=== PATIENT | female | born 1965 | race Caucasian/White ===

== ENCOUNTER 2022-03-22 10:45 | Outpatient (RCR) | payer BC, SELFPAY | END 2022-11-01 23:59 | disposition home or self-care (01) | PROVIDERS: PCP Family Medicine; Visit Provider Family Medicine | DX: M62.838 Other muscle spasm (principal); Z51.89 Encounter for other specified aftercare | CPT/HCPCS: 97110; 97140; 97162 ==

== ENCOUNTER 2022-03-26 17:37 | Emergency (ER) | payer BC, SELFPAY ==
[2022-03-26 17:47] VITALS: BP 173/101; PULSE 92; RESP 20; TEMP 36.3; O2SAT 98; BMI 24.4
--- NOTE | 2022-03-26 18:09 | CRLHL7_ITS ---
For Patients: As a result of the Century Cures Act, medical imaging exams and procedure reports are released immediately into your electronic medical record. You may view this report before your referring provider. If you have questions, please contact your health care provider. INDICATION: Chest pain. TECHNIQUE: Chest 1 view. COMPARISON: None. FINDINGS: Cardiovascular and mediastinum: Heart size and vasculature are normal in caliber and appearance. Lungs and pleural spaces: Lungs are clear. No sign of infiltrate or mass. No sign of pleural effusion. No pneumothorax. Bones and soft tissues: No significant findings. IMPRESSION: Unremarkable chest. Dictated by Macho Villarreal MD @ 03/26/2022 7:00:47 PM (Electronically Signed)
[2022-03-26 18:23] VITALS: O2SAT 99
[2022-03-26 18:25] VITALS: BP 155/89
[2022-03-26 18:28] LABS: Basophils Absolute Auto 0.02 K/uL (0.00-0.30); Basophils Percent Auto 0.3 % (0.0-3.0); Eosinophils Percent Auto 4.7 % (0.0-7.0); Hematocrit 37.1 % (33.0-51.0); Lymphocytes Absolute Auto 1.35 K/uL (0.90-2.90); Lymphocytes Percent Auto 21.2 % (20-44); Mean Corpuscular HGB Conc 32 gm/dL (32-36); Mean Corpuscular Hemoglobin 32 pg (26-34); Mean Corpuscular Volume 99 fL (80-100); Monocytes Percent Auto 8.3 % (0.0-11.0); Neutrophils Absolute Auto 4.16 K/uL (1.7-7.0); Neutrophils Percent Auto 65.5 % (42.0-72.0); Platelet Count* 358 K/uL (140-440); RDW Coefficient of Variation % 14.1 % (11.5-15.5); Red Blood Count 3.76 m/uL (4.00-5.20); White Blood Count* 6.36 K/uL (4.50-11.00)
[2022-03-26 18:29] LABS: Slide Review Reflex No
[2022-03-26] MEDS: NITROGLYCERIN 0.4 MG TAB.SUBL SUBLINGUAL (18:29)
[2022-03-26 18:45] LABS: D Dimer Quantitative* 0.83 ug/ml (0.00-0.50)
[2022-03-26 18:46] LABS: Chloride* 108 mmol/L (96-114)
[2022-03-26 18:47] LABS: Potassium* 3.9 mmol/L (3.6-5.1); Sodium* 142 mmol/L (135-149)
[2022-03-26 18:49] LABS: Creatinine* 0.8 mg/dL (0.5-1.5); Est. Creatinine Clearance* 94.02; Estimated Glomerular Filt Rate 85 ml/min
[2022-03-26 18:50] LABS: Blood Urea Nitrogen* 16 mg/dL (7-30); Calcium* 9.3 mg/dL (8.4-10.6); Carbon Dioxide* 25 mmol/L (20-32); Glucose* 139 mg/dL (60-115)
[2022-03-26 18:51] LABS: Ethanol* < 0.01 % (0.01-0.03)
[2022-03-26 18:53] VITALS: BP 142/94
[2022-03-26 18:54] LABS: C Reactive Protein* 0.9 mg/dL (0.5-1.0)
[2022-03-26 18:58] LABS: NT Pro B Type NatriureticPept* 376 pg/mL
[2022-03-26 19:02] LABS: Troponin I* < 0.01 ng/mL (0.01-0.04)
[2022-03-26 20:12] VITALS: BP 142/94
[2022-03-26 20:20] LABS: Troponin I* < 0.01 ng/mL (0.01-0.04)
--- NOTE | 2022-03-26 20:55 | ED_ITS ---
HPI - Chest Pain General Chief Complaint: Chest Pain Stated Complaint: chest pain Time Seen by Provider: 03/26/22 17:54 History of Present Illness HPI narrative: 56 year old woman presenting to the emergency department with complaints of chest pain beginning at rest about two hours ago. This pain and location is familiar. She did take a nitroglycerin with minimal relief. Told to present to the ER. Was recently at [facility] for a cardiac evaluation. Underlying history of ischemic cardiomyopathy and angina. Reports recent echocardiogram to have an EF of 30%; improving. This achy pain in her chest is radiating into her left arm as well. No pleuritic pain. No cough cold symptoms. No fever. No nausea. No diaphoresis. No new leg swelling. Not short of breath at this time. Continues to smoke. Related Data Home Medications Medication Instructions Recorded Confirmed amlodipine 5 mg tablet mg 03/26/22 isosorbide mononitrate 30 mg mg PO 03/26/22 tablet,extended release 24 hr isosorbide mononitrate 60 mg mg PO 03/26/22 tablet,extended release 24 hr levothyroxine 200 mcg tablet mcg 03/26/22 losartan 25 mg tablet mg 03/26/22 metoprolol succinate 25 mg mg PO 03/26/22 tablet,extended release 24 hr nitroglycerin 0.4 mg sublingual mg 03/26/22 tablet rosuvastatin 20 mg tablet mg 03/26/22 Allergies Allergy/AdvReac Type Severity Reaction Status Date / Time No Known Drug Allergies Allergy Verified 03/26/22 18:00 Review of Systems Status of ROS Reports: 10 or more systems reviewed and unremarkable except as noted in History and below [facility] Medical History (Updated 04/10/22 @ 00:01 by ) Arrhythmia CAD (coronary artery disease) Hypertension Hypothyroid Social History Smoking Status: Current every day smoker What tobacco products do you use: cigarettes Do you use any of these nicotine containing products: None How often do you have a drink containing alcohol: never AUDIT-C Alcohol total score: 0 Non-prescribed substance use: denies use service: No Exam Narrative Exam Narrative: Tall. NAD. Speaking easily. Breathing easily. Direct in communication. Good eye contact. Smells a little of cigarette smoke. Neck is without JVD. Lungs appear to be clear. Chest wall otherwise without reproducible pain. No epigastric pain. Strong and equal upper extremity pulses. Generally extremities are well perfused. Mild dependent lower extremity edema. Non-pitting. Abdomen soft nontender. Heart is in a regular rhythm. Mildly elevated rate. Const Vital Signs, click to edit/add: Vital Signs - 24 hr 03/26/22 17:47 03/26/22 18:23 03/26/22 18:25 Temperature 97.4 F L Pulse Rate [Pulse Oximeter] 92 Respiratory Rate 20 Blood Pressure [Right Upper Arm] 173/101 H 155/89 H Pulse Oximetry 98 99 Oxygen Delivery Method Room Air 03/26/22 18:53 03/26/22 20:12 Temperature Pulse Rate [Pulse Oximeter] Respiratory Rate Blood Pressure [Right Upper Arm] 142/94 H 142/94 H Pulse Oximetry Oxygen Delivery Method Room Air Documenting provider has reviewed patient's vital signs: yes Course Vital Signs Vital signs: Initial Vital Signs Temperature 97.4 F L 03/26/22 17:47 Temperature Source Temporal Artery Scan 03/26/22 17:47 Pulse Rate 92 03/26/22 17:47 Pulse Rhythm 03/26/22 17:47 Respiratory Rate 20 03/26/22 17:47 Blood Pressure 173/101 H 03/26/22 17:47 Blood Pressure Mean 125 03/26/22 17:47 Blood Pressure Position Sitting 03/26/22 17:47 Pulse Oximetry 98 03/26/22 17:47 Oxygen Delivery Method 03/26/22 17:47 Vital Signs Temperature 97.4 F L 03/26/22 17:47 Pulse Rate 92 03/26/22 17:47 Respiratory Rate 20 03/26/22 17:47 Blood Pressure 173/101 H 03/26/22 17:47 Pulse Oximetry 98 03/26/22 17:47 Oxygen Delivery Method 03/26/22 17:47 Temperature 97.4 F L 03/26/22 17:47 Pulse Rate 92 03/26/22 17:47 Respiratory Rate 20 03/26/22 17:47 Blood Pressure 142/94 H 03/26/22 20:12 Pulse Oximetry 99 03/26/22 18:23 Oxygen Delivery Method 03/26/22 20:12 MDM - Chest Pain MDM Narrative Medical decision making narrative: Monitored in the emergency department without further event. Did receive a dose of nitroglycerin in the ED which essentially resolved pain. EKG showed left bundle branch block which on my read was present prior. CXR by my read wnl for acute abnormality. Labs with mildly elevated d-dimer. I discussed that dissection or other embolic event might still be in differential. She prefers to follow up with cardiology at this point understandably. I think given history response to nitroglycerin, familiar pain, that angina is most likely issue here. Has close relationship with cardiology and will follow up with cardiology tomorrow. Medical Records Data Attestation: I reviewed the patient's medical records. Lab Data Attestation: I reviewed the patient's lab results. Labs: Lab Results 03/26/22 03/26/22 03/26/22 Range/Units 18:00 18:00 18:00 WBC 6.36 (4.50-11.00) K/uL RBC 3.76 L (4.00-5.20) m/uL Hgb 12.0 (12.0-16.0) gm/dL Hct 37.1 (33.0-51.0) % MCV 99 (80-100) fL MCH 32 (26-34) pg MCHC 32 (32-36) gm/dL RDW Coeff of Annette 14.1 (11.5-15.5) % Plt Count 358 (140-440) K/uL Neut % (Auto) 65.5 (42.0-72.0) % Lymph % (Auto) 21.2 (20-44) % [place] % (Auto) 8.3 (0.0-11.0) % Eos % (Auto) 4.7 (0.0-7.0) % Baso % (Auto) 0.3 (0.0-3.0) % Neut # (Auto) 4.16 (1.7-7.0) K/uL Lymph # (Auto) 1.35 (0.90-2.90) K/uL [place] # (Auto) 0.50 (0.00-0.90) K/UL Eos # (Auto) 0.30 (0.00-0.50) K/uL Baso # (Auto) 0.02 (0.00-0.30) K/uL Abs Immat Gran (auto) 0.00 (0.00-0.30) K/uL Imm/Tot Granulo (auto) 0.0 % D-Dimer Quant (PE/DVT) (0.00-0.50) ug/ml Sodium 142 (135-149) mmol/L Potassium 3.9 (3.6-5.1) mmol/L Chloride 108 (96-114) mmol/L Carbon Dioxide 25 (20-32) mmol/L BUN 16 (7-30) mg/dL Creatinine 0.8 (0.5-1.5) mg/dL Estimated Creat Clear 94.02 Estimated GFR 85 ml/min Glucose 139 H (60-115) mg/dL Calcium 9.3 (8.4-10.6) mg/dL Troponin I (0.01-0.04) ng/mL C-Reactive Protein 0.9 (0.5-1.0) mg/dL NT-Pro-B Natriuret Pep pg/mL Ethyl Alcohol < 0.01 L (0.01-0.03) % POC Troponin I (0.01-0.04) ng/ml 03/26/22 03/26/22 03/26/22 Range/Units 18:00 18:00 18:00 WBC (4.50-11.00) K/uL RBC (4.00-5.20) m/uL Hgb (12.0-16.0) gm/dL Hct (33.0-51.0) % MCV (80-100) fL MCH (26-34) pg MCHC (32-36) gm/dL RDW Coeff of Annette (11.5-15.5) % Plt Count (140-440) K/uL Neut % (Auto) (42.0-72.0) % Lymph % (Auto) (20-44) % [place] % (Auto) (0.0-11.0) % Eos % (Auto) (0.0-7.0) % Baso % (Auto) (0.0-3.0) % Neut # (Auto) (1.7-7.0) K/uL Lymph # (Auto) (0.90-2.90) K/uL [place] # (Auto) (0.00-0.90) K/UL Eos # (Auto) (0.00-0.50) K/uL Baso # (Auto) (0.00-0.30) K/uL Abs Immat Gran (auto) (0.00-0.30) K/uL Imm/Tot Granulo (auto) % D-Dimer Quant (PE/DVT) 0.83 H (0.00-0.50) ug/ml Sodium (135-149) mmol/L Potassium (3.6-5.1) mmol/L Chloride (96-114) mmol/L Carbon Dioxide (20-32) mmol/L BUN (7-30) mg/dL Creatinine (0.5-1.5) mg/dL Estimated Creat Clear Estimated GFR ml/min Glucose (60-115) mg/dL Calcium (8.4-10.6) mg/dL Troponin I < 0.01 L (0.01-0.04) ng/mL C-Reactive Protein (0.5-1.0) mg/dL NT-Pro-B Natriuret Pep 376 pg/mL Ethyl Alcohol (0.01-0.03) % POC Troponin I 0.00 L (0.01-0.04) ng/ml 03/26/22 Range/Units 19:47 WBC (4.50-11.00) K/uL RBC (4.00-5.20) m/uL Hgb (12.0-16.0) gm/dL Hct (33.0-51.0) % MCV (80-100) fL MCH (26-34) pg MCHC (32-36) gm/dL RDW Coeff of Annette (11.5-15.5) % Plt Count (140-440) K/uL Neut % (Auto) (42.0-72.0) % Lymph % (Auto) (20-44) % [place] % (Auto) (0.0-11.0) % Eos % (Auto) (0.0-7.0) % Baso % (Auto) (0.0-3.0) % Neut # (Auto) (1.7-7.0) K/uL Lymph # (Auto) (0.90-2.90) K/uL [place] # (Auto) (0.00-0.90) K/UL Eos # (Auto) (0.00-0.50) K/uL Baso # (Auto) (0.00-0.30) K/uL Abs Immat Gran (auto) (0.00-0.30) K/uL Imm/Tot Granulo (auto) % D-Dimer Quant (PE/DVT) (0.00-0.50) ug/ml Sodium (135-149) mmol/L Potassium (3.6-5.1) mmol/L Chloride (96-114) mmol/L Carbon Dioxide (20-32) mmol/L BUN (7-30) mg/dL Creatinine (0.5-1.5) mg/dL Estimated Creat Clear Estimated GFR ml/min Glucose (60-115) mg/dL Calcium (8.4-10.6) mg/dL Troponin I < 0.01 L (0.01-0.04) ng/mL C-Reactive Protein (0.5-1.0) mg/dL NT-Pro-B Natriuret Pep pg/mL Ethyl Alcohol (0.01-0.03) % POC Troponin I (0.01-0.04) ng/ml ECG Data Attestation: I personally reviewed and interpreted this ECG as follows: (Normal sinus at 90 with left bundle-branch block similar to prior obtained from 03/02/2022) Discharge Plan Discharge Clinical Impression: Anginal chest pain at rest Patient Disposition: Home w/ Parent or Adult Condition: Improved Additional Instructions: Remember you do have nitroglycerin. You can dose this at home. If chest pain or pressure continuing though, return to the emergency department. Otherwise tomorrow, I would check in with Cardiology regarding this visit. Was a pleasure caring for you today. Happy holidays. Prescriptions: No Action isosorbide mononitrate 30 mg tablet extended release 24 hr PO Label Comments: TAKE ONE TABLET BY MOUTH ONE TIME DAILY amlodipine 5 mg tablet Label Comments: TAKE ONE TABLET BY MOUTH ONE TIME DAILY isosorbide mononitrate 60 mg tablet extended release 24 hr PO Label Comments: TAKE ONE TABLET BY MOUTH ONE TIME DAILY losartan 25 mg tablet Label Comments: TAKE ONE TABLET BY MOUTH ONE TIME DAILY nitroglycerin 0.4 mg tablet, sublingual Label Comments: Place 1 tablet under the tongue every 5 minutes if needed for chest pain. max 3 tablets/15 minutes. levothyroxine 200 mcg tablet Label Comments: TAKE ONE TABLET BY MOUTH EVERY DAY IN THE MORNING. metoprolol succinate 25 mg tablet extended release 24 hr PO Label Comments: TAKE ONE TABLET BY MOUTH ONE TIME DAILY rosuvastatin 20 mg tablet Label Comments: TAKE ONE TABLET BY MOUTH ONE TIME DAILY AT BEDTIME Follow Up/Referrals: Michaela Claudio MD [Primary Care Provider] - Stand Alone Forms: MyHealth Info Instructions
== END 2022-03-26 20:58 | disposition home or self-care (01) ==
PROVIDERS: Emergency Provider Family Medicine; PCP Family Medicine
DX: R07.9 Chest pain, unspecified (principal)
CPT/HCPCS: 36415; 71045; 80048; 82077; 83880; 84484; 85025; 85379; 86140; 93005; 94761; 99284; 99285; A9270

== ENCOUNTER 2024-07-12 22:27 | Emergency (ER) | payer MEDICAID, SELFPAY ==
--- OUTSIDE RECORDS SUMMARY | 2024-07-12 22:29 | XMS_ITS | Data Portability ---
Author Organization [place] - [facility], [employer] Address [address] [facility] [place] [address] Assessment Encounter Date Assessment Date Assessment LastModified by Organization Details LastModified Time 12/24/2023 12/24/2023 Discussed medical conditions with patient today. For the peroneal and tibialis posterior tendinitis, I recommended the patient try a Triloc ankle brace on the left side to provide support and reduce inflammation. This was properly sized and dispensed today and patient was instructed on proper use. The patient was advised to continue using Voltaren gel as a topical anti-inflammator y. I discussed the importance of wearing supportive shoes and suggested gradually transitioning to more supportive footwear to avoid exacerbating the condition. May consider pedpillow inserts during her next visit. For the plantar fasciitis, performed low dye strapping to the right foot. Recommended that she elevate the feet above the heart to reduce swelling. I also suggested considering physical therapy, including ultrasound and iontophoresis, to manage inflammation and pain pending her improvement. The patient was scheduled for a follow-up appointment in two weeks to assess the effectiveness of the brace and taping, and to discuss further management options. I instructed the patient to bring a pair of supportive shoes to the next visit for evaluation. Not available 12/24/2023 15:43:02 01/07/2024 01/07/2024 Discussed medical conditions with patient today. Patient has responded very well with conservative care. She deferred radiographs today. Discussed the potential benefits of orthotics in the future, especially given the positive response to taping. I advised the patient to continue using the Triloc ankle brace as tolerated for her tendonitis and to consider orthotics for additional support. Performed low dye strapping/taping to bilateral feet today as docuemented. We agreed to a follow-up appointment in two weeks, with the option for the patient to cancel if they are feeling 100% better at that time. Not available 01/08/2024 19:51:00 Plan of Treatment Reminders Order Date Submit Date Provider Last Modified By Organization Details Last Modified Time Details Appointments None record ed. Lab None record ed. Referral None record ed. Procedures None record ed. Surgeries None record ed. Imaging None record ed. Medication Orders None record ed. Patient TargetsNo targets recorded. Patient InstructionsNo instructions recorded. Reason for Referral None Reported. Procedures Surgical History Date Name Laterality Status Provider Name and Address Organization Details Recorded Time 4 [facility] completed ZORAN BETANCOURT DPM [address] [place], [address], [facility] 01/08/2024 19:49:30 4 Stra[facility] Foot & Ankle completed ZORAN BETANCOURT DPM [address] [place], [address], [facility] 12/24/2023 15:38:25 Imaging Results None recorded. Procedure Notes None recorded. Medical Equipment None Reported. Medications Name Sig Start Date Stop Date Status Note LastModified by Organization Details LastModified Time azithromyci n 250 mg tablet TAKE 2 TABLETS BY MOUTH ON DAY 1, THEN 1 TABLET DAILY ON DAYS 2-5.* 01/06 completed Not Available Not Available Not Available fluconazole 150 mg tablet Take 1 Tablet (150 mg) by mouth one time for 1 dose.* 01/06 completed Not Available Not Available Not Available citalopram 10 mg tablet TAKE ONE TABLET BY MOUTH IN THE MORNING* 01/06 completed Not Available Not Available Not Available isosorbide mononitrate ER 30 mg tablet,exte nded release 24 hr TAKE ONE TABLET BY MOUTH ONE TIME DAILY* active Not Available Not Available No t Available metoprolol succinate ER 100 mg tablet,exte nded release 24 hr TAKE ONE AND ONE-HALF TABLETS BY MOUTH DAILY* active Not Available Not Available No t Available isosorbide mononitrate ER 120 mg tablet,exte nded release 24 hr TAKE ONE TABLET BY MOUTH ONE TIME DAILY* 01/06 completed Not Available Not Available Not Available isosorbide mononitrate ER 60 mg tablet,exte nded release 24 hr TAKE ONE TABLET BY MOUTH ONE TIME DAILY* 01/06 completed Not Available Not Available Not Available lorazepam 0.5 mg tablet TAKE ONE TABLET BY MOUTH DAILY NEEDED* active Not Available Not Available No t Available amlodipine 10 mg tablet TAKE ONE TABLET BY MOUTH ONE TIME DAILY* active Not Available Not Available No t Available nitroglycer in 0.[address] 1 tablet under the tongue every 5 minutes if needed for chest pain. max 3 tablets/1 5 minutes.* active Not Available Not Available No t Available levothyroxi ne 200 mcg tablet TAKE ONE TABLET BY MOUTH ONE TIME DAILY* active Not Available Not Available No t Available cefuroxime axetil 500 mg tablet TAKE ONE TABLET BY MOUTH TWICE DAILY* 01/06 completed Not Available Not Available Not Available albuterol sulfate HFA 90 mcg/actuati on aerosol inhaler Inhale 1-2 Puffs by mouth every 4 hours if needed for Shortness of Breath 1st choice or Wheezing 2nd choice.* active Not Available Not Available No t Available losartan 100 mg tablet TAKE ONE TABLET BY MOUTH ONE TIME DAILY* active Not Available Not Available No t Available doxycycline hyclate 100 mg tablet TAKE ONE TABLET BY MOUTH TWICE DAILY* 01/06 completed Not Available Not Available Not Available loratadine 10 mg tablet TAKE 1 TABLET (10 MG) BY MOUTH ONCE DAILY.* 01/06 completed Not Available Not Available Not Available rosuvastati n 20 mg tablet TAKE ONE TABLET BY MOUTH ONE TIME DAILY AT BEDTIME* active Not Available Not Available No t Available Compact Space Chamber For home use.* 01/06 completed Not Available Not Available Not Available Vitals Date Recorded Body height Body mass index (BMI) Body weight Provider Name and Address Organization Details Last Updated DateTime 12/24/2023 187.96 cm 25.7 kg/m2 15989.47 g Lilliana PECK - [facility] 12/24/2023 11:38:32 Social History None recorded. Functional Status None recorded. Mental Status None recorded. Family History Nothing Reported. Medical History No medical history recorded. Gynecological HistoryNo gynecological history recorded. 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 foot 6447348621 099081 M67.874 Dysfunctio n of posterior tibial tendon of right foot 9190196393 144436 M67.873 Peroneal t endinitis of right lower limb 3045734501 76740 M76.71 Peroneal t endinitis of left lower limb 3896380680 32629 M76.72 Acquired l eft hallux valgus 7438721319 99045 M20.12 Plantar fasciitis 113136 003 M72.2 Contractur e of joint of right ankle 6704707970 42431 M24.571 Contractur e of joint of left ankle 3312846661 33462 M24.572 [id number] ZORAN ASIA [facility] Office [address] [place] [address] [id number] 4 01/07/2024 10:20:52 01/10/2024 11:40:25 Dysfunction of posterior tibial tendon of left foot 9235527599 486304 M67.874 Dysfunctio n of posterior tibial tendon of right foot 3985563012 092295 M67.873 Peroneal t endinitis of right lower limb 0369468414 36656 M76.71 Peroneal t endinitis of left lower limb 9755934986 06461 M76.72 Acquired l eft hallux valgus 7010830832 10385 M20.12 Plantar fasciitis 912880 003 M72.2 Contractur e of joint of right ankle 2210394009 58006 M24.571 Contractur e of joint of left ankle 3692090739 34681 M24.572 Health Concerns Section Related Observation LastModified by Organization Detai ls LastModified Time None Recorded Concern Status LastModified by Organization Details LastModified Time None Recorded Advance Directives Directive None Recorded Payers Encounter Date Sequence Insurance Name Policy Number Policy López Covered Member ID López Member ID Guarantor Name 12/24/2023 1 *SELF PAY* Myke Gallo 01/07/2024 1 *SELF PAY* Myke Del Valle SagerishabhYomaira Notes Date Note Type Note Provider Name and Address Organization Details Recorded Time 12/24/2023 text/html The patient presents with bilateral foot pain, primarily from the barreto bone down to the heel, side of the foot, and top of the foot. The right foot is currently worse than the left. The pain has been ongoing for over six months without a specific inciting event. The patient describes the pain as stabbing and reports that it is present even when not standing. The pain is exacerbated by any pressure on the feet, including walking and standing, and is severe enough to prevent the patient from tolerating even a sheet touching the feet while in bed. The patient has tried various treatments, including night splints, Bengay, Voltaren, Epsom salt baths, castor oil wraps, and different types of shoes, with limited relief. The patient also reports using a knee scooter at home and electric scooters in stores due to the severity of the pain. States that she rarely wears shoes because they make her feet excessively warm. ZORAN BETANCOURT, DPAmelia [address] [place], [address], [facility] - [facility] 12/24/2023 15:43:22 01/07/2024 text/html The patient presents today for ongoing management of bilateral foot and ankle pain. The patient reports feeling significantly better since the last visit, stating they can now walk and ride a bike, including a recent nine-mile bike ride. The patient requests taping of the feet today, noting substantial relief from the previous taping. The patient mentions difficulty wearing the brace all day due to heat and swelling, which necessitates frequent loosening but states that it has helped a lot with her discomfort. The patient reports a current pain score of 3 out of 10, a significant improvement from previous visits where the pain was sometimes greater than 10. PRIOR HISTORY: The patient presents with bilateral foot pain, primarily from the barreto bone down to the heel, side of the foot, and top of the foot. The right foot is currently worse than the left. The pain has been ongoing for over six months without a specific inciting event. The patient describes the pain as stabbing and reports that it is present even when not standing. The pain is exacerbated by any pressure on the feet, including walking and standing, and is severe enough to prevent the patient from tolerating even a sheet touching the feet while in bed. The patient has tried various treatments, including night splints, Bengay, Voltaren, Epsom salt baths, castor oil wraps, and different types of shoes, with limited relief. The patient also reports using a knee scooter at home and electric scooters in stores due to the severity of the pain. States that she rarely wears shoes because they make her feet excessively warm. ZORAN BETANCOURT, DPAmelia [address] [place], [address], [place] - [facility] 01/08/2024 19:58:07 OBGyn Episode No OBEpisode recorded.
--- OUTSIDE RECORDS SUMMARY | 2024-07-12 22:29 | XMS_ITS | Clinical Summary ---
Author Organization [facility] Address [address] [place] [id number] Care Team Providers Care Airline Pilot/First Officer Name Role Phone Michaela Claudio MD Primary Care Provide r Allergies Active Allergy Reactions Criticality Noted Date Comments Sulfamethoxazole-Trimethop rim Rash 02/14/2007 Sacubitril-Valsartan Other - Describe In Comment Field 06/17/2023 Pulse went very low and passed out Hydrochlorothiazide Rash 02/14/2007 Lisinopril Intolerance-Can' t Take 09/29/2007 Cough Prednisone Other - Describe In Comment Field 11/18/2007 [place] visual disturbance and generalalized dysphoria Medications cholecalciferol (VITAMIN D3) 1,000 unit capsule Take 3 capsules by mouth once daily. 0 020 Active Ascorbic Rbly-Wavlodqna-Ax n 1,000 mg pwep Take by mouth. 0 020 Active turmeric root extract 500 mg cap Take 100 mg by mouth. 0 021 Active nitroglycerin (NITROSTAT) 0.4 mg sublingual tabletIndications :Chest pain in adult Place 1 Tablet (0.4 mg) under the tongue every 5 minutes if needed for Chest Pain. 25 Tablet 024 Active Ymcxunwdemr-SY-Ei -S.thermophl 1 billion cell- 250 mg tab Take 1 Tablet by mouth once daily. Active inhalational spacing deviceIndications :Community acquired pneumonia, unspecified laterality For home use. 1 Each 024 Active albuterol HFA (PRO-AIR; VENTOLIN; PROVENTIL) 90 mcg/actuation inhalerIndication s:Bronchitis Inhale 1-2 Puffs by mouth every 4 hours if needed for Shortness of Breath 1st choice or Wheezing 2nd choice. 1 Each 1 024 Active Arginine HCl, L-Arginine, 1,000 mg tabletIndications :Hyperlipidemia, unspecified hyperlipidemia type,Nonischemic cardiomyopathy (HC),Coronary artery disease involving [place] coronary artery of [place] heart without angina pectoris Take 2,000 mg by mouth two times daily. 360 Tablet 3 024 Active LORazepam (ATIVAN) 0.5 mg tabIndications:An xiety TAKE ONE TABLET BY MOUTH DAILY NEEDED 30 Tablet 025 Active amLODIPine (NORVASC) 10 mg tabletIndications :Essential hypertension TAKE ONE TABLET BY MOUTH ONE TIME DAILY 90 Tablet 3 025 Active rosuvastatin (CRESTOR) 20 mg tabletIndications :CAD in [place] artery TAKE ONE TABLET BY MOUTH ONE TIME DAILY AT BEDTIME 90 Tablet 3 025 Active losartan (COZAAR) 100 mg tabletIndications :Hypertension Take 1 Tablet (100 mg) by mouth once daily. More refills provided at completion of appointment scheduled 07/24/[address] Herbert. 90 Tablet 025 Active loratadine 10 mg tabletIndications :Allergic rhinitis due to pollen, unspecified seasonality Take 1 Tablet (10 mg) by mouth once daily. during allergy season 025 Active isosorbide mononitrate 30 mg extended release tablet 24 HourIndications:C AD in [place] artery Take 1 Tablet (30 mg) by mouth once daily. 90 Tablet 3 025 Active levothyroxine 200 mcg tabletIndications :Hypothyroidism (acquired) Take 1 Tablet (200 mcg) by mouth once daily. 90 Tablet 3 025 Active azithromycin (Zithromax Z-Erik) 250 mg tabletIndications :Cough productive of purulent sputum Take 500 mg today and then 250 mg days 2-5 6 Tablet 025 Active ketoconazole 2% topical (NIZORAL) creamIndications: Tinea versicolor Apply topically to affected area(s) 2 times daily. 60 g 1 022 2024 Discontinued(* Patient states no longer taking) loratadine (CLARITIN) 10 mg tabletIndications :Allergic rhinitis due to pollen, unspecified seasonality Take 1 Tablet (10 mg) by mouth once daily. 90 Tablet 2 023 2024 Discontinued(R eorder (E-cancel not sent)) citalopram (CELEXA) 10 mg tabletIndications :Adjustment disorder with anxiety Take 1 Tablet (10 mg) by mouth every morning. 90 Tablet 3 023 2024 Discontinued(* Patient states no longer taking) losartan (COZAAR) 100 mg tabletIndications :Hypertension Take 1 Tablet (100 mg) by mouth once daily. 90 Tablet 3 024 2024 Discontinued isosorbide mononitrate (IMDUR) 60 mg extended release tablet 24 hour Take 60 mg by mouth. 023 2024 Discontinued(* Medication adjustment) azithromycin (Zithromax Z-Erik) 250 mg tabletIndications :Bronchitis Take 500 mg today and then 250 mg days 2-5 6 Tablet 024 2024 Discontinued(* Med complete/Regim en complete/Level of care change) isosorbide mononitrate (IMDUR) 30 mg extended release tablet 24 HourIndications:C AD in [place] artery TAKE ONE TABLET BY MOUTH ONE TIME DAILY 90 Tablet 024 2024 Discontinued(R eorder (E-cancel not sent)) rosuvastatin (CRESTOR) 20 mg tabletIndications :CAD in [place] artery TAKE ONE TABLET BY MOUTH ONE TIME DAILY AT BEDTIME 90 Tablet 024 2024 Discontinued amLODIPine (NORVASC) 10 mg tabletIndications :Essential hypertension TAKE ONE TABLET BY MOUTH ONE TIME DAILY 90 Tablet 024 2024 Discontinued levothyroxine (SYNTHROID) 200 mcg tabletIndications :Hypothyroidism (acquired) TAKE ONE TABLET BY MOUTH ONE TIME DAILY 90 Tablet 025 2024 Discontinued(R eorder (E-cancel not sent)) metoprolol succinate (TOPROL XL) 100 mg Sustained-Release tabletIndications :Coronary artery disease involving [place] coronary artery of [place] heart without angina pectoris,Chest pain, unspecified type Take 1 Tablet (100 mg) by mouth once daily. You are due for your annual Cardiology appointment in July 2024 with lab work and imaging prior. Please call I two months prior to schedule at [phone]. 025 2024 Discontinued(* Med complete/Regim en complete/Level of care change) fluconazole 150 mg tabletIndications :Yeast vaginitis Take 1 Tablet (150 mg) by mouth one time for 1 dose. 1 Tablet 025 2024 Active Problems Problem Noted Date Diagnosed Date Other chest pain 05/13/2023 STEPHANIE 01/09/2021 AHi-5.3 01/17/2021 Nonischemic cardiomyopathy 07/23/2020 Depression, major, single episode, moderate 07/14 Tobacco use disorder 04/11/2016 Family history of heart disease 12/11/2013 Allergic rhinitis 08/22/2012 Displacement of lumbar inter vertebral disc without myelopathy 12/25/2007 Unspecified essential hypertension 02/14/2007 Celiac disease 07/20/2006 Other specified gastritis without mention of hem orrhage 07/20/2006 Hypocalcemia 07/20/2006 Anemia, unspecified 07/20/2006 Personal history of tobacco use, presenting hazards to health 07/20/2006 Unspecified hypothyroidism 12/14/1998 Encounters Date Type Department Care Team Description 07/09/2024 12:00 PM CDT Ancillary Procedure [facility] [address] [place] [address] Arrived 07/09/2024 10:45 AM CDT Office Visit [facility] [address] [place] [address] Michaela Claudio MD Follow Up (Patient is scheduled for a BIV ICD implant on 07/20/[address] Henriquez./Is concerned as still having SOB and coughing up clear phlegm, would like a chest x-ray, to rule out infection/echo on 07/17/24/) 07/09/2024 Travel 07/07/2024 Telephone [facility] [address] [facility] [address] [place] [phone] Jacque Metzger, RN questions 07/01/2024 Telephone [facility] [address] [facility] [address] [place] [phone] Micheal Henriquez MD Questions (Questions regarding prior auth.) 06/25/2024 12:46 PM CDT - 06/25/2024 11:59 PM CDT Hospital Encounter [facility] [address] [place] [address] Roger Fairchild MD AV block, 3rd degree (HC); AV block, Mobitz 2 06/25/2024 12:20 PM CDT Orders Only [facility] [address] [phone] Lab 06/25/2024 11:00 AM CDT Office Visit [facility] [address] [phone] Roger Fairchild MD CV Electrophysiology Est (Zio report: notification criteria for CHB met. SX. referral per Dr Moon. /BMP 06-24-2024 //PCP: Michaela Claudio MD) 06/24/2024 11:00 AM CDT Orders Only [facility] [address] [place] [phone] Lab, [facility] Lab 06/24/2024 Travel 06/24/2024 Telephone [facility] [address] [place] [address] Michaela Claudio MD Appointment (Cancellation); Appointment Request 06/19/2024 Telephone [facility] [address] [phone] John Rivera PA concerns (-->VICTOR MANUEL EP consult) 06/19/2024 Telephone [facility] [address] [place] [address] Michaela Claudio MD Follow Up 06/18/2024 Refill [facility] [address] [facility] [address] [place] [phone] John Rivera PA Refill Request (Losartan) 06/18/2024 Refill [facility] [address] [place] [address] Michaela Claudio MD Refill Request (Amlodipine, Rosuvastatin) 06/16/2024 Telephone [facility] [address] [phone] John Rivera PA Concerns 06/11/2024 11:00 AM PRINCIPAL GIFTS OFFICER Office Visit [facility] [address] [phone] John Rivera PA CV General Cardiology Est (SAME DAY ADD ON . APPROVED BY RN. PT WANTED TO BE SEEN TODAY DUE TO HR 36-44//PCP: Michaela Claudio MD/) 06/11/2024 Nurse Triage [facility] [address] [place] [address] Michaela Claudio MD Palpitations 05/19/2024 Refill [facility] [address] [place] [address] Michaela Claudio MD Refill Request (Lorazepam) 04/23/2024 Refill [facility] [address] [place] [address] Michaela Claudio MD Refill Request (Lorazepam) 04/19/2024 Refill [facility] [address] [place] [address] Michaela Claudio MD Refill Request (Levothyroxine) from Last 3 Months Immunizations Immunization Administration Dates Next Due COVID-19 vaccine (Fly Fishing Hunter 30mcg/0.3mL) JACK CALLES 03/16/2021,03/16/2021,07/30/2020,2020,07/09/2020 Influenza RIV4 (Age 18+ Year s) PRESERV FREE 01/30/2021 Influenza Virus, Unspecified 01/13/2009, 02/18/2008,02/26/2007,2005 Influenza, IIV3 (Age 6-35 mos) 02/16/2011 Influenza, IIV3 (Age >=3 years) 02/28/20 13,04/24/2012,02/16/2011,2008,02/18/2008,02/26/2007,01/31/2006 Influenza, IIV4 02/22/2020, 9,01/31/2018,2014,03/08/2014 Pneumococcal Poly,23-Valent (Pneumovax) 04/15/2002 Td (Age >=7 Years) 03/18/2002 Td, Preservative Free (age > = 7 Years) 03/18/2002 Tdap 02/16/2011 Family History Medical History Relation Name Comments Heart Disease Brother stents Heart Disease Father ID - at 74 Other Father renal insuffici ency/anemia Heart attack Maternal Grandfather Heart attack Maternal Uncle Diabetes Mother Heart Disease Mother ID - at 64 Hypertension Sister Cancer-breast No Family History Relation Name Status Comments Brother Father Maternal Grandfather Maternal Uncle Mother (Age 64) chf Sister Social History Tobacco Use Types Packs/Day Years Used Date Smoking Tobacco: Former Cigarettes 1 20 Q uit: 06/21/2024 Smokeless Tobacco: Never Tobacco Cessation:Counseling Given: Not Answered Comments:Started smoking when she was young Alcohol Use Standard Drinks/Week Comments No 0 (1 standard drink = 0.6 oz pur e alcohol) PHQ-2 Answer Date Recorded PHQ-2 TOTAL SCORE 0 07/09/2024 Social Connections Answer Date Recorded Do you often feel lonely or isolated from those around you? 0 07/09/2024 Financial Resource Strain Answer Date R ecorded Difficulty of Paying Living Expenses 3 07/09/2024 Difficulty of Paying Living Expenses Not on file 07/09/2024 Food Insecurity Answer Date Recorded Do you worry your food will run out before you are able to buy more? 1 07/09/2024 Transportation Needs Answer Date Record ed Does lack of transportation keep you from medica l appointments? 1 07/09/2024 Does lack of transportation keep you from work, meetings or getting things that you need? 1 07/09/2024 Housing Stability Answer Date Recorded What is your housing situation today? 1 07/09/2024 Utilities Answer Date Recorded Do you have trouble paying f or utilities (for example, heat, electricity, water, phone)? 1 07/09/2024 Comments No Sex and Gender Information Value Date Recorded Sex Assigned at Not on file Legal Sex Female 5:23 AM PRINCIPAL GIFTS OFFICER Gender Identity Not on file Sexual Orientation Not on file Obstetrics History Last Filed Vital Signs Vital Sign Reading Time Taken Comments Blood Pressure 117/64 07/09/2024 11:12 AM CDT Pulse 47 07/09/2024 11:12 AM CDT Temperature 36.6 C (97.9 F) 08/05/2023 11:07 AM CDT Respiratory Rate 16 03/13/2022 8:07 AM PRINCIPAL GIFTS OFFICER Oxygen Saturation 97% 07/09/2024 11:12 AM CDT Inhaled Oxygen Concentration - - Weight 90.7 kg (200 lb) 08/05/2023 11:01 AM CDT Height 188 cm (6' 2) 06/25/2024 10:59 AM CDT Body Mass Index 25.68 03/20/2023 2:28 PM PRINCIPAL GIFTS OFFICER Plan of Treatment Upcoming Encounters Date Type Department Care Team (Late st Contact Info) Description 07/17/2024 9:00 AM CDT Ancillary Procedure [facility] [address] [place] [phone] 07/20/2024 8:00 AM CDT Appointment [facility] [address] [place] [address] Micheal Henriquez MD [address] [facility] [address] [place] [address] 07/24/2024 1:00 PM CDT Office Visit [facility] [address] [place] [phone] Carroll Herbert MD [address] [facility] [address] [place] [address] Health Maintenance Due Date Last Done Comments HIV for age 15-65 12/07/1978 Pneumococcal series for age 50+ (2 of 2 - PCV) 04/15/2003 04/15/2002 Mammogram for age 45-75 12/13/2012 12/14/2011, 06/26 Zoster (shingles) series for age 50+ (1 of 2) 12/07/2013 Pap test for age 21-65 02/11/2021 8, 02/11/2018, 2010 Tetanus booster 02/16/2021 02/16/2011, 07/2001, 03/18/2002 BMI (ht and wt on same day) for age 18+ 01/09/2022 01/09/2021, 12/26/[address] (for lung CA) ag e 50-80 03/02/2023 03/02/2022 RSV vaccine for adults or (1 - Risk 60-74 years 1-dose series) 2023 COVID-19 vaccine series ( season) 2023 03/16/2021, 03/16/2021, 07/30/2020, Additional history exists Influenza Vaccine (#1) 2023 , 02/22/2020, 02/17/2019, Additional history exists Depression screening for age 12+ 07/09/2025 07/09/2024, 12/14/2021, 07/22/2020, Additional history exists Lipids for age 45-75 06/24/2029 06/24/2024, 07/11/2021, 05/27/2020, Additional history exists Colonoscopy through age 75 09/18/203009/18 (Verified in Care Everywhere or Patient Record) Tdap Completed 02/16/2011 Hepatitis C screening for ag e 18-79 Completed 07/11/2021 Procedures Procedure Name Priority Date/Time Associated Diagnosis Comments XR CHEST 2 VIEWS PA AND LATERAL Routine 07/09/2024 12:05 PM CDT SOB (shortness of breath) MR CARDIAC WWO VICTOR MANUEL 06/25/2024 4:04 PM CDT AV block, 3rd degree (HC) AV block, Mobitz 2 LYME SCREEN W/REFLEX Routine 06/25/2024 12:46 PM CDT AV block, 3rd degree (HC) BASIC METABOLIC PANEL Routine 06/25/2024 12:46 PM CDT Unspecified essential hypertension Nonischemic cardiomyopathy (HC) EKG 12 LEAD Today 06/25/2024 10:56 AM CDT AV block, 3rd degree (HC) SVT (supraventricular tachycardia) (HC) CBC WITH AUTO DIFFERENTIAL Routine 06/24/2024 10:55 AM CDT Fatigue, unspecified type BASIC METABOLIC PANEL Routine 06/24/2024 10:55 AM CDT Nonischemic cardiomyopathy (HC) TSH WITH REFLEX Routine 06/24/2024 10:55 AM CDT Fatigue, unspecified type LIPID PANEL W REFLEX MEASURED LDL Routine 06/24/2024 10:55 AM CDT CAD in [place] artery EXTENDED HOLTER Routine 06/23/2024 Coronary artery disease involving [place] coronary artery of [place] heart without angina pectoris Chest pain, unspecified type EKG 12 LEAD Routine 06/11/2024 11:57 AM PRINCIPAL GIFTS OFFICER Coronary artery disease involving [place] coronary artery of [place] heart without angina pectoris Chest pain, unspecified type CT CHEST PE STUDY STAT 03/02/2022 2:1 1 PM PRINCIPAL GIFTS OFFICER Atypical chest pain ANTI HCV Routine 07/11/2021 9:25 AM CDT Encounter for hepatitis C virus screening test for high risk patient [employer] CO[employer] THIN PREP PAP SCREEN IMAGED Routine 02/11/2018 1:40 PM CDT SCAN-MAMMOGRAPHY REPORT 12/14/2011 12:00 AM CDT from Last 3 Months or Most Recently Relevant to Health Maintenance Results * XR CHEST 2 VIEWS PA AND LATERAL (07/09/2024 12:05 PM CDT) Anatomical Region Laterality Modality CHEST, THORAX, Lung, HEART Compu dante Radiography 07/12/2024 8:23 AM CDT Impressions 07/12/2024 8:23 AM CDT Negative chest. Dictated by Elias Heaton MD @ 07/12/2024 8:23:47 AM (Electronically Signed) Narrative 07/12/2024 8:23 AM CDT For Patients: As a result of the Cures Act, medical imaging exams and procedure reports are released immediately into your electronic medical record. You may view this report before your referring provider. If you have questions, please contact your health care provider. INDICATION: Shortness of breath. TECHNIQUE: Chest 2 views. COMPARISON: 08/09/2022. FINDINGS: Cardiovascular and mediastinum: Heart size is normal. Unremarkable mediastinum. Lungs and pleural spaces: Lungs are clear. No sign of infiltrate or mass. No sign of pleural effusion. No pneumothorax. Bones and soft tissues: No significant findings. Procedure Note Elias Heaton MD - 07/12/2024 For Patients: As a result of the Cures Act, medical imagingexams and procedure reports are released immediately into your electronicmedical record. You may view this report before your referring provider.If you have questions, please contact your health care provider. INDICATION: Shortness of breath. TECHNIQUE: Chest 2 views. COMPARISON: 08/09/2022. FINDINGS: Cardiovascular and mediastinum: Heart size is normal. Unremarkablemediastinum. Lungs and pleural spaces: Lungs are clear. No sign of infiltrate ormass. No sign of pleural effusion. No pneumothorax. Bones and soft tissues: No significant findings. IMPRESSION: Negative chest. Dictated by Elias Heaton MD @ 07/12/2024 8:23:47 AM (Electronically Signed) us Michaela Claudio MD GENERAL IMAGING Final Result * MR CARDIAC WWO (06/25/2024 4:04 PM CDT) Anatomical Region Laterality Modality HEART, THORAX Magnetic Resonan ce 06/25/2024 2:55 PM CDT Narrative 06/25/2024 4:34 PM [address] [facility] CMR Report Name: TANYA BURNETTE : Scan Date: Accession Number: [id number] Status: Final Electronically signed by Félix Brock 16:34:41 VITALS ===== HEIGHT: 74 in (188 cm) WEIGHT: 200 lbs (91 kgs) BSA: 2.17 m^2 FINAL IMPRESSION ===== 1. The left ventricle is severely enlarged in cavity size, LVEDVi 136 ml/m2. Increased LV trabeculations is noted, a shared trait seen in patients with dilated cardiomyopathy. A. Global systolic function is moderately reduced with an LV ejection fraction calculated at 38%. B. Moderate diffuse hypokinesis. 2. The right ventricle is at the upper limit in cavity size with normal systolic function. 3. Delayed enhancement imaging demonstrates no evidence of myocardial infarction or scar. A. No evidence of infiltrative disease, ECV at the upper limit of normal. B. T2 map is normal, there is no evidence of inflammatory cardiomyopathy or myocarditis. 4. No intracardiac thrombus visualized. Conclusion: Non-ischemic, idiopathic dilated cardiomyopathy wit LVEDVi 136 ml/m2 and LVEF 38%. There is no evidence of myocardial fibrosis or cardiac sarcoid. Compared to prior CMR from June 30, 2020, the LV cavity is more dilated from moderately to severely enlarged. No other significant changes. SUMMARY ===== LEFT VENTRICLE: Quantitative LVEF 38 %. LV cavity is severely enlarged. LV wall thickness is normal. LV systolic function is moderately decreased globally. There is no LV mass/thrombus. VIABILITY: Hyperenhancement is normal. RIGHT VENTRICLE: Quantitative RVEF 54 %. RV cavity size is upper limits of normal. RV systolic function is normal. LV/RV SEPTUM: The ventricular septum is intact. LEFT ATRIUM: LA is moderately enlarged. There is no LA mass/thrombus. RIGHT ATRIUM: There is no RA mass/thrombus. RA is mildly enlarged. PERICARDIUM: Pericardium is normal. There is no pericardial effusion. PLEURAL EFFUSION: There is no pleural effusion. AORTIC VALVE: Aortic valve leaflets are normal. There is no aortic regurgitation. There is no aortic stenosis. MITRAL VALVE: Mitral valve leaflets are normal. There is mild mitral regurgitation. TRICUSPID VALVE: Tricuspid valve leaflets are normal. PULMONIC VALVE: Pulmonic valve leaflets are normal. AORTIC ROOT: The aortic root is normal. OTHER FINDINGS: Ascending aorta 35 x 35 mm. CORE EXAM ===== MEASUREMENTS ----- --- VOLUMETRIC ANALYSIS . . LV Reference RV Reference +------+--------+-----+ +-----+ + EDV ml 296 (82-162) 188 (75-160) ml/m^2 136 (53-87) 87 (49-86) ESV ml 184 (20-57) 86 (11-63) ml/m^2 85 (13-31) 40 (8-34) CO MASS g 148 (73-145) g/m^2 68 (48-78) SV ml 112 (56-111) 102 (55-106) ml/m^2 52 (36-60) 47 (34-58) EF % 38 (60-78) 54 (57-81) '------+--------+-----+ +-----+ ' EXTRACELLULAR VOLUME MEASUREMENT ECV: 30 % 17 SEGMENT ----- --- . ----- -------. Segments Wall Motion Hyperenhancement Stress Perfusion Interpretation + + + + +---- ----- -------+ Base Anterior Mild/Mod Hypo None Base Anteroseptal Mild/Mod Hypo None Base Inferoseptal Mild/Mod Hypo None Base Inferior Mild/Mod Hypo None Base Inferolateral Mild/Mod Hypo None Base Anterolateral Mild/Mod Hypo None Mid Anterior Mild/Mod Hypo None Mid Anteroseptal Mild/Mod Hypo None Mid Inferoseptal Mild/Mod Hypo None Mid Inferior Mild/Mod Hypo None Mid Inferolateral Mild/Mod Hypo None Mid Anterolateral Mild/Mod Hypo None Apical Anterior Mild/Mod Hypo None Apical Septal Mild/Mod Hypo None Apical Inferior Mild/Mod Hypo None Apical Lateral Mild/Mod Hypo None [place] Mild/Mod Hypo None + + + + +---- ----- -------+ RV Segments Wall Motion Hyperenhancement Interpretation + + + + +---- ----- -------+ RV Basal Anterior Normal/Hyper None RV Basal Inferior Normal/Hyper None RV Mid Normal/Hyper None RV Apical Normal/Hyper None ' + + + +---- ----- -------' FINDINGS LV SCAR SIZE (17 SEGMENT): 0 % SCAN INFO ===== GENERAL ----- --- SCANNER BELT TENDER: SIEMENS MODEL: Aera CONTRAST AGENT TYPE: Gadavist GD CONCENTRATION: 1.0 M SETUP REFERRING PHYSICIAN: ROGER FAIRCHILD ATTENDING PHYSICIAN: ROGER FAIRCHILD BILLING ===== Patient Account [id number] ICD10 Codes I44.2, I44.1 Report generated by [employer], a product of [employer] Procedure Note Cortez Julian MD - 06/25/2024 [facility] CMR Report Name: TANYA BURNETTE : Scan Date: Accession Number: [id number] Status: Final Electronically signed by Félix Brock 16:34:41 VITALS ===== HEIGHT: 74 in (188 cm) WEIGHT: 200 lbs (91 kgs) BSA: 2.17 m^2 FINAL IMPRESSION ===== 1. The left ventricle is severely enlarged in cavity size, LVEDVi 136ml/m2. Increased LV trabeculations is noted, a shared trait seen in patients with dilated cardiomyopathy. A. Global systolic function is moderately reduced with an LV ejectionfraction calculated at 38%. B. Moderate diffuse hypokinesis. 2. The right ventricle is at the upper limit in cavity size with normalsystolic function. 3. Delayed enhancement imaging demonstrates no evidence of myocardialinfarction or scar. A. No evidence of infiltrative disease, ECV at the upper limit ofnormal. B. T2 map is normal, there is no evidence of inflammatorycardiomyopathy or myocarditis. 4. No intracardiac thrombus visualized. Conclusion: Non-ischemic, idiopathic dilated cardiomyopathy wit [id number] ml/m2 and LVEF 38%. There is no evidence of myocardial fibrosis or cardiac sarcoid. Compared to prior CMR from June 30, 2020, the LV cavity is more dilatedfrom moderately to severely enlarged. No other significant changes. SUMMARY ===== LEFT VENTRICLE: Quantitative LVEF 38 %. LV cavity is severely enlarged. LVwall thickness is normal. LV systolic function is moderately decreased globally. There is no LV mass/thrombus. VIABILITY: Hyperenhancement is normal. RIGHT VENTRICLE: Quantitative RVEF 54 %. RV cavity size is upper limits ofnormal. RV systolic function is normal. LV/RV SEPTUM: The ventricular septum is intact. LEFT ATRIUM: LA is moderately enlarged. There is no LA mass/thrombus. RIGHT ATRIUM: There is no RA mass/thrombus. RA is mildly enlarged. PERICARDIUM: Pericardium is normal. There is no pericardial effusion. PLEURAL EFFUSION: There is no pleural effusion. AORTIC VALVE: Aortic valve leaflets are normal. There is no aorticregurgitation. There is no aortic stenosis. MITRAL VALVE: Mitral valve leaflets are normal. There is mild mitralregurgitation. TRICUSPID VALVE: Tricuspid valve leaflets are normal. PULMONIC VALVE: Pulmonic valve leaflets are normal. AORTIC ROOT: The aortic root is normal. OTHER FINDINGS: Ascending aorta 35 x 35 mm. CORE EXAM ===== MEASUREMENTS ----- --- VOLUMETRIC ANALYSIS . . LV Reference RV Reference +------+--------+-----+ +-----+ + EDV ml 296 (82-162) 188 (75-160) ml/m^2 136 (53-87) 87 (49-86) ESV ml 184 (20-57) 86 (11-63) ml/m^2 85 (13-31) 40 (8-34) CO MASS g 148 (73-145) g/m^2 68 (48-78) SV ml 112 (56-111) 102 (55-106) ml/m^2 52 (36-60) 47 (34-58) EF % 38 (60-78) 54 (57-81) '------+--------+-----+ +-----+ ' EXTRACELLULAR VOLUME MEASUREMENT ECV: 30 % 17 SEGMENT ----- --- . ----- -------. Segments Wall Motion Hyperenhancement Stress Perfusion Interpretation + + + + +---- ----- -------+ Base Anterior Mild/Mod Hypo None Base Anteroseptal Mild/Mod Hypo None Base Inferoseptal Mild/Mod Hypo None Base Inferior Mild/Mod Hypo None Base Inferolateral Mild/Mod Hypo None Base Anterolateral Mild/Mod Hypo None Mid Anterior Mild/Mod Hypo None Mid Anteroseptal Mild/Mod Hypo None Mid Inferoseptal Mild/Mod Hypo None Mid Inferior Mild/Mod Hypo None Mid Inferolateral Mild/Mod Hypo None Mid Anterolateral Mild/Mod Hypo None Apical Anterior Mild/Mod Hypo None Apical Septal Mild/Mod Hypo None Apical Inferior Mild/Mod Hypo None Apical Lateral Mild/Mod Hypo None [place] Mild/Mod Hypo None + + + + +---- ----- -------+ RV Segments Wall Motion Hyperenhancement Interpretation + + + + +---- ----- -------+ RV Basal Anterior Normal/Hyper None RV Basal Inferior Normal/Hyper None RV Mid Normal/Hyper None RV Apical Normal/Hyper None ' + + + +---- ----- -------' FINDINGS LV SCAR SIZE (17 SEGMENT): 0 % SCAN INFO ===== GENERAL ----- --- SCANNER BELT TENDER: SIEMENS MODEL: Aera CONTRAST AGENT TYPE: Gadavist GD CONCENTRATION: 1.0 M SETUP REFERRING PHYSICIAN: ROGER FAIRCHILD ATTENDING PHYSICIAN: ROGER MCCORMACKING ===== Patient Account [id number] ICD10 Codes I44.2, I44.1 Report generated by [employer], a product of [employer] us Roger Fairchild MD MR Final Resu lt * LYME SCREEN W/REFLEX (06/25/2024 12:46 PM CDT) LYME SCREEN W/REFLEX Negative Negative 06/26/2024 9:46 AM CDT [facility] Comment: No laboratory evidence of infection with B. burgdorferi (Lyme disease). Negative results may occur in patients recently infected (less than or equal to 14 days) with B. burgdorferi. If recent infection is suspected, repeat testing on a new sample collected in 7-14 days is recommended. Blood BLOOD SPECIMEN / Unknown Venipuncture / Unknown 06/25/2024 12:46 PM CDT 06/25/2024 1:10 PM CDT Roger Fairchild MD SEND OUTS Final Resu lt [facility] [address] [place] [address], * (ABNORMAL) BASIC METABOLIC PANEL (06/25/2024 12:46 PM CDT) Only the most recent of2 resultswithin the time period is included. SODIUM 140 136 - 145 mmol/L 06/25/2024 1:37 PM CDT [facility] POTASSIUM 5.0 3.5 - 5.1 mmol/L 06/25/2024 1:37 PM CDT [facility] CHLORIDE 105 98 - 107 mmol/L 06/25/2024 1:37 PM CDT [facility] CO2,TOTAL 25 22 - 29 mmol/L 06/25/2024 1:37 PM CDT [facility] ANION GAP 10 5 - 18 06/25/2024 1:37 PM CDT [facility] GLUCOSE 99 70 - 99 mg/dL 06/25/2024 1:37 PM CDT [facility] CALCIUM 9.2 8.8 - 10.4 mg/dL 06/25/2024 1:37 PM CDT [facility] Comment: Reference ranges for this test were updated on 02/18/2024 to reflect our healthy population more accurately. Reference range changes are not retroactively applied to results, but previous results using the same methodology can be interpreted in the context of the new reference range. BUN 18 8 - 23 mg/dL 06/25/2024 1:37 PM CDT [facility] CREATININE 0.85 0.50 - 0.90 mg/dL 06/25/2024 1:37 PM CDT [facility] BUN/CREAT RATIO 21(H) 10 - 20 1:37 PM CDT [facility] eGFR 79(L) >90 mL/min/1.7 3m2 06/25/2024 1:37 PM CDT [facility] Comment:As of 2021, eG FR is calculated by the CKD-EPI creatinine equation without race adjustment. eGFR can be influenced by muscle mass, exercise, and diet. The reported eGFR is an estimation only and is only applicable if the renal function is stable. Blood BLOOD SPECIMEN / Unknown Venipuncture / Unknown 06/25/2024 12:46 PM CDT 06/25/2024 1:10 PM CDT Micheal Maradiaga MD CHEMISTRY Final Result [facility] [address] [place] [address], * EKG 12 LEAD (06/25/2024 10:56 AM CDT) Only the most recent of2 resultswithin the time period is included. Interpretation Sinus rhythm with 2:1 AV block Left bundle branch block Abnormal ECG Ventricular Rate 49 BPM Atrial Rate 49 BPM P-R Interval 176 ms QRS Duration 156 ms QT 590 ms QTc 532 ms P [place] 48 degrees R [place] 31 degrees T [place] 54 degrees 06/25/2024 10:5 6 AM CDT 06/26/2024 1:22 PM CDT Roger Fairchild MD EKG ORD Final Resu lt * TSH WITH REFLEX (06/24/2024 10:55 AM CDT) TSH W/REFLEX TO FT4 3.11 0.40 - 4.50 mIU/L [facility] Blood BLOOD SPECIMEN / Unknown 06/24/2024 10:55 AM CDT 06/24/2024 10:57 AM CDT Narrative [facility] - 06/25/2024 6:05 AM CDT FASTING:NO FASTING: NO Michaela Claudio MD CHEMISTRY Final Result [facility] [address] [place] [address], [facility] [address] [place] [address] * (ABNORMAL) LIPID PANEL W REFLEX MEASURED LDL (06/24/2024 10:55 AM CDT) Pathologist [facility] CHOLESTEROL, TOTAL 119 <200 mg/dL [facility] HDL CHOLESTEROL 33(L) > OR = 50 mg/dL [facility] TRIGLYCERIDES 232(H) <150 mg/dL [facility] Comment: If a non-fasting specimen was collected, consider repeat triglyceride testing on a fasting specimen if clinically indicated. Júnior et al. J. of Clin. Lipidol. 2015;9:129-169. LDL-CHOLESTEROL 57 mg/dL (calc) [facility] Comment: Reference range: <100 Desirable range <100 mg/dL for primary prevention; <70 mg/dL for patients with CHD or diabetic patients with > or = 2 CHD risk factors. LDL-C is now calculated using the Damaris calculation, which is a validated novel method providing better accuracy than the Friedewald equation in the estimation of LDL-C. Manas MICHAEL et al. CHAS. 2013;310(19): 1912-6958 (http://education.Intrusic/faq/ARD321) CHOL/HDLC RATIO 3.6 <5.0 (calc) [facility] NON HDL CHOLESTEROL 86 <130 mg/dL (calc) [facility] Comment: For patients with diabetes plus 1 major ASCVD risk factor, treating to a non-HDL-C goal of <100 mg/dL (LDL-C of <70 mg/dL) is considered a therapeutic option. Blood BLOOD SPECIMEN / Unknown 06/24/2024 10:55 AM CDT 06/24/2024 10:57 AM CDT Narrative [facility] - 06/25/2024 5:09 AM CDT FASTING:NO FASTING: NO Michaela Claudio MD CHEMISTRY Final Result [facility] [address] [place] [address], [facility] [address] [place] [id number] * (ABNORMAL) CBC AND DIFFERENTIAL (06/24/2024 10:55 AM CDT) WHITE BLOOD CELL COUNT 8.3 3.8 - 10.8 Thousand/u L [facility] RED BLOOD CELL COUNT 3.90 3.80 - 5.10 Million/uL [facility] HEMOGLOBIN 12.6 11.7 - 15.5 g/dL [facility] HEMATOCRIT 37.7 35.0 - 45.0 % [facility] MCV 96.7 80.0 - 100.0 fL [facility] MCH 32.3 27.0 - 33.0 pg [facility] MCHC 33.4 32.0 - 36.0 g/dL [facility] Comment: For adults, a slight decrease in the calculated MCHC value (in the range of 30 to 32 g/dL) is most likely not clinically significant; however, it should be interpreted with caution in correlation with other red cell parameters and the patient's clinical condition. RDW 14.1 11.0 - 15.0 % [facility] PLATELET COUNT 364 140 - 400 Thousand/u L [facility] MPV 9.8 7.5 - 12.5 fL [facility] ABSOLUTE NEUTROPHILS 5,636 1,500 - 7,800 cells/uL [facility] ABSOLUTE LYMPHOCYTES 1,370 850 - 3,900 cells/uL [facility] ABSOLUTE MONOCYTES 730 200 - 950 cells/uL [facility] ABSOLUTE EOSINOPHILS 506(H) 15 - 500 cells/uL [facility] ABSOLUTE BASOPHILS 58 0 - 200 cells/uL [facility] NEUTROPHILS 67.9 % [facility] LYMPHOCYTES 16.5 % [facility] MONOCYTES 8.8 % [facility] EOSINOPHILS 6.1 % [facility] BASOPHILS 0.7 % [facility] Blood BLOOD SPECIMEN / Unknown 06/24/2024 10:55 AM CDT 06/24/2024 10:57 AM CDT Narrative [facility] - 06/25/2024 3:32 AM CDT FASTING:NO FASTING: NO Michaela Claudio MD HEMATOLOGY Final Result [facility] [address] [place] [address], [facility] [address] [place] [address] * (ABNORMAL) ZIO PATCH XT - weekly to monthly symptoms. (06/23/2024) John [facility] ORD Edit ed Result - Final * CT CHEST PE STUDY (03/02/2022 2:11 PM PRINCIPAL GIFTS OFFICER) Anatomical Region Laterality Modality CHEST, THORAX, HEART Computed To mography 03/02/2022 2:22 PM PRINCIPAL GIFTS OFFICER Impressions 03/02/2022 2:22 PM PRINCIPAL GIFTS OFFICER No evidence of pulmonary thromboembolism. Left hepatic lobe benign hemangioma measuring 5.7 cm. This has increased in size compared to the prior study in 2012 when it measured 3.5 cm. If the patient does not have any symptoms, this does not require any further evaluation. Please note that all CT scans at this facility use dose modulation, iterative reconstruction, and/or weight-based dosing when appropriate to reduce radiation dose to as low as reasonably achievable. Dictated by Juan Turner MD @ Mar 02 2022 2:22PM (Electronically Signed) Narrative 03/02/2022 2:22 PM PRINCIPAL GIFTS OFFICER For Patients: As a result of the Cures Act, medical imaging exams and procedure reports are released immediately into your electronic medical record. You may view this report before your referring provider. If you have questions, please contact your health care provider. INDICATION: Atypical chest pain COMPARISON: 07/14/2012 TECHNIQUE: CT volumetric acquisition was performed of the thorax during intravenous infusion of 100 cc of Omnipaque-350 nonionic intravenous contrast. Please note that all CT scans at this facility use dose modulation, iterative reconstruction, and/or weight-based dosing when appropriate to reduce radiation dose to as low as reasonably achievable. FINDINGS: The CT images are of acceptable quality and demonstrate normal uniform vascular enhancement within the pulmonary arteries. There are no suspicious filling defects which would indicate pulmonary thromboemboli. There is no evidence of pleural or pericardial fluid. The heart and thoracic aorta appear normal. There is no evidence of lymphadenopathy within the central mediastinum or within either axilla. On lung window settings, there is no evidence of pneumothorax. The pulmonary parenchyma has uniform density and there is no evidence of hemorrhage or pneumonia. Incidental splenules noted in the left upper quadrant. Also incidental benign adenoma left adrenal gland measuring 9 millimeters. There is an incidental calcification within the posterior right liver. Discontinuous peripheral enhancement of a low-density lesion in the left hepatic lobe measuring 5.7 cm, representing benign intrahepatic hemangioma. Procedure Note Juan Turner MD - 03/02/2022 For Patients: As a result of the Cures Act, medical imagingexams and procedure reports are released immediately into your electronicmedical record. You may view this report before your referring provider.If you have questions, please contact your health care provider. INDICATION: Atypical chest pain COMPARISON: 07/14/2012 TECHNIQUE: CT volumetric acquisition was performed of the thorax during intravenousinfusion of 100 cc of Omnipaque-350 nonionic intravenous contrast. Please note that all CT scans at this facility use dose modulation,iterative reconstruction, and/or weight-based dosing when appropriate toreduce radiation dose to as low as reasonably achievable. FINDINGS: The CT images are of acceptable quality and demonstrate normal uniformvascular enhancement within the pulmonary arteries. There are nosuspicious filling defects which would indicate pulmonary thromboemboli.There is no evidence of pleural or pericardial fluid. The heart andthoracic aorta appear normal. There is no evidence of lymphadenopathywithin the central mediastinum or within either axilla. On lung window settings, there is no evidence of pneumothorax. Thepulmonary parenchyma has uniform density and there is no evidence ofhemorrhage or pneumonia. Incidental splenules noted in the left upper quadrant. Also incidentalbenign adenoma left adrenal gland measuring 9 millimeters. There is anincidental calcification within the posterior right liver. Discontinuousperipheral enhancement of a low-density lesion in the left hepatic lobemeasuring 5.7 cm, representing benign intrahepatic hemangioma. IMPRESSION: No evidence of pulmonary thromboembolism. Left hepatic lobe benign hemangioma measuring 5.7 cm. This has increasedin size compared to the prior study in 2012 when it measured 3.5 cm. Ifthe patient does not have any symptoms, this does not require any furtherevaluation. Please note that all CT scans at this facility use dose modulation,iterative reconstruction, and/or weight-based dosing when appropriate toreduce radiation dose to as low as reasonably achievable. Dictated by Juan Turner MD @ Mar 02 2022 2:22PM (Electronically Signed) us Michaela Claudio MD CT Final Result * ANTI HCV (07/11/2021 9:25 AM CDT) HEPATITIS C ANTIBODY Non-React trupti Non-React trupti 07/11/2021 5:01 PM CDT [facility] Comment:Antibodies to HCV no t detected; does not exclude the possibility of exposure to HCV. Blood BLOOD SPECIMEN / Unknown Venipuncture / Unknown 07/11/2021 9:25 AM CDT 07/11/2021 9:26 AM CDT us Michaela Claudio MD SEND OUTS Final Result [facility] [address] [place] [address], [place] * BRAKE LININGS COATER THIN PREP PAP SCREEN IMAGED (02/11/2018 1:40 PM CDT) Case Report Gynecologic Cytology Report Case: [id number] Authorizing Provider: Maria Victoria Hancock MD Collected: 02/11/2018 1340 First Screen: Navya Staton Received: 02/13/2018 1826 Specimen: BRAKE [employer]INGS COATER ThinPrep Vial Screening, Cervical/Vaginal 02/20/2018 4:16 PM PRINCIPAL GIFTS OFFICER [facility] INTERPRETATION/ RESULT NEGATIVE FOR INTRAEPITHELIAL LESION OR MALIGNANCY (NIL) (none) 02/20/2018 4:16 [address] PRINCIPAL GIFTS OFFICER [facility] IMEN ADEQUACY Satisfactory for evaluation Endocervical component present 02/20/2018 4:16 [address] PRINCIPAL GIFTS OFFICER [facility] HPV REQUEST HPV and PAP 02/20/2018 4:16 PM PRINCIPAL GIFTS OFFICER [facility] Date of LMP 02/20/2018 4:16 PM PRINCIPAL GIFTS OFFICER [facility] Comment:PM Last Pap Date 2010 02/20/2018 4:16 PM PRINCIPAL GIFTS OFFICER [facility] Last Pap Result NIL 8 4:16 PM PRINCIPAL GIFTS OFFICER [facility] Automated Review Successful 02/20/2018 4:16 PM PRINCIPAL GIFTS OFFICER [facility] Comment:Specimen processed s uccessfully by automated screw machine tender device, ThinPrep Imaging System, [employer] ANCILLARY TESTING BRAKE [employer]ATER HPV Ordered, Please see separate report 02/20/2018 4:16 PM PRINCIPAL GIFTS OFFICER [facility] Note The pap test is a screening technique, not a diagnostic procedure. It is used primarily to screen for squamous cancers and precursor lesions. Published studies have shown that it is subject to both false negative and false positive results. The pap test should not be used as the sole means to diagnose or exclude pre-malignant and malignant lesions. Cytology is screened and interpreted at [facility] - [address], [place] [address] and [facility] - [address]; [place] [address] and [facility] - [address]; [place] [address] and [facility] [address]; [place] [address] 02/20/2018 4:16 PM PRINCIPAL GIFTS OFFICER [facility] Other (Cervical/Vagina l) 02/11/2018 1:40 PM CDT 02/13/2018 6:26 PM CDT us Maria Victoria Hancock MD PATHOLOGY/CYTOLOGY Final Result Performing Organization Address City/State/[facility] Co de Phone Number [facility] [address] [place] [address], [place] * SCAN-MAMMOGRAPHY REPORT (12/14/2011 12:00 AM CDT) Anatomical Region Laterality Modality Other Narrative Transcriptions Scanner - 12/14/2011 12:00 AM CDT us Scanner OTHER Final Result from Last 3 Months or Most Recently Relevant to Health Maintenance Insurance [id number] [facility] [employer] [place] [phone] [facility] [employer]ILY [employer]ANS [id number] [facility] [employer] [place] [phone] [facility] [employer] Advance Directives * Full Code (Latest Code Status on File) Date Activated Date Inactivated Comments 05/17/2020 11:07 AM 05/17/2020 7:58 PM Question Answer Comments Code Status Discussion: Discussed Care Teams Airline Pilot/First Officer Relationship Specialty Start Date End Date Michaela Claudio MD [address] [address] PCP - General Family Practice 07/25/17
--- OUTSIDE RECORDS SUMMARY | 2024-07-12 22:30 | XMS_ITS | Clinical Summary ---
Author Organization [facility] Address [address] [place] [address] Care Team Providers Care Lead Pharmacy Technician Name Role Phone Elsewhere, Pcp Primary Care Provider Unavailabl e Source Comments Patient records contain information from all sites at [facility]. For routine questions regarding patient records, call [phone] during business hours, M-F 8:00 AM - 5:00 PM Central Time. Record requests for emergency care only can be directed to [phone] at any time.[facility] Allergies Active Allergy Reactions Criticality Noted Date Comments Sacubitril-Valsartan Other (see comments) High 12/13/2022 Pulse dropped to 29, fainted, dizziness Hydrochlorothiazide Rash Medium 02/14/2007 Lisinopril Cough High 09/29/2007 Cough Prednisone Other (see comments) High 11/18/2007 Points visual disturbance and generalalized dysphoria Sulfamethoxazole-Trimethop rim Rash Medium 02/14/2007 Medications levothyroxine (SYNTHROID, LEVOTHROID) 200 mcg tablet Take 1 tablet by mouth every morning. 3 Active amLODIPine (NORVASC) 5 mg tablet Take 1 tablet by mouth daily. 3 Active rosuvastatin (CRESTOR) 20 mg tablet Take 1 tablet by mouth at bedtime. 3 Active metoprolol succinate (TOPROL-XL) 100 mg 24 hr tablet Take 100 mg by mouth daily. Taking 1.5pills, 150mg [address] Active [address] tablet Take 1 tablet by mouth daily. 1 Active TURMERIC ROOT EXTRACT ORAL Take 100 mg by mouth daily. 1 Active cholecalciferol (VITAMIN D3) 25 mcg (1,000 Unit) capsule Take 1 capsule by mouth daily. 0 Active LORazepam (ATIVAN) 0.5 mg tablet Take 0.5 mg by mouth daily. 3 Active albuterol 90 mcg/actuation inhaler Inhale 2 puffs every 4 (four) hours as needed for wheezing or shortness of breath. 3 Active nitroglycerin (NITROSTAT) 0.[address] 0.4 mg under the tongue every 5 (five) minutes as needed for chest pain. 3 Active L.acidoph-L.farshadg -B.bif-S.therm (BACID) 1 billion cell- 250 mg per tablet Take 1 tablet by mouth daily. Active ascorbic acid, vitamin C, (Vitamin C) 1,000 mg tablet Take 1,000 mg by mouth daily. Active citalopram (CeleXA) 10 mg tablet Take 10 mg by mouth daily. 3 Active losartan (COZAAR) 100 mg tablet Take 100 mg by mouth daily. 3 Active isosorbide mononitrate (IMDUR) 60 mg 24 hr tablet Take 1 tablet (60 mg total) by mouth daily. 30 tablet 11 3 Active isosorbide mononitrate (IMDUR) 30 mg 24 hr tablet Take 1 tablet (30 mg total) by mouth daily. 30 tablet 11 3 Active isosorbide mononitrate (IMDUR) 120 mg 24 hr tablet Take 120 mg by mouth daily. 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 Angina Pectoris (Angina Equivalent) 11/16/2022 Pain Chest Atypical 11/16/2022 Abuse Tobacco Smoking 11/16/2022 Failure Heart 11/13/2022 Cardiomyopathy Dilated 07/23/2020 Immunizations Immunization Administration Dates Next Due Influenza, Unspecified 01/13/2009,02/18/2008,,01/31/2006 PPSV23 04/15/2002 Td (Adult), adsorbed 03/18/2002 Social History Tobacco Use Types Packs/Day Years Used Date Smoking Tobacco: Every Day Cigarettes Smokeless Tobacco: Never Tobacco Cessation:Ready to Q uit: Not Asked; Counseling Given: Not Answered Humiliation, Afraid, Rape, and Kick questionnair e Answer Date Recorded Within the last year, have y ou been afraid of your partner or ex-partner? Patient declined 11/20/2022 Within the last year, have y ou been humiliated or emotionally abused in other ways by your partner or ex-partner? Patient declined 11/20/2022 Within the last year, have y ou been kicked, hit, slapped, or otherwise physically hurt by your partner or ex-partner? Patient declined 11/20/2022 Within the last year, have y ou been raped or forced to have any kind of sexual activity by your partner or ex-partner? Patient declined 11/20/2022 Overall Financial Resource Strain (CARDIA) Answe r Date Recorded How hard is it for you to pa y for the very basics like food, housing, medical care, and heating? Patient declined 11/20/2022 Exercise Vital Sign Answer Date Recorde d On average, how many days pe r week do you engage in moderate to strenuous exercise (like a brisk walk)? Patient declined On average, how many minutes do you engage in exercise at this level? Patient declined 11/20/2022 Hunger Vital Sign Answer Date Recorded Within the past 12 months, y ou worried that your food would run out before you got the money to buy more. Never true 11/21/19 23 Within the past 12 months, t he food you bought just didn't last and you didn't have money to get more. Never true 11/20/2022 PRAPARE - Transportation Answer Date Re corded In the past 12 months, has l ack of transportation kept you from medical appointments or from getting medications? No 11/2022 In the past 12 months, has l ack of transportation kept you from meetings, work, or from getting things needed for daily living? No 11/20/2022 Nutrition Answer Date Recorded Nutrition: EVOO Fat Source Unknown 08/21 Nutrition: Servings of Fruits/Vegetables per Day Not on file 08/21/2022 Dental Answer Date Recorded Dental: Regular Dentist Yes 11/21/19 Employment Answer Date Recorded Employment status Retired 11/20/2022 Housing Stability Answer Date Recorded What is your living situation today? [facility] place to live 11/20/2022 Comments Unknown Sex and Gender Information Value Date Recorded Sex Assigned at Choose not to disclose 12/2022 8:44 PM CDT Legal Sex Female 6:19 AM [employer] Gender Identity Other 11/21/2022 8:44 PM CDT Sexual Orientation Choose not to disclose 2022 8:44 PM CDT Last Filed Vital Signs Vital Sign Reading Time Taken Comments Blood Pressure 111/70 03/18/2023 10:22 AM [employer] Pulse 74 03/18/2023 10:22 AM [employer] Temperature 36.6 C (97.9 F) 12/06/2022 6:26 PM CDT Respiratory Rate 22 12/06/2022 10:15 PM CDT Oxygen Saturation 97% 12/06/2022 10:00 PM CDT Inhaled Oxygen Concentration - - Weight 101 kg (223 lb 3.5 oz) 12/13/2022 8:18 AM CDT Height 183 cm (6' 0.05) 12/13/2022 8:18 AM CDT Body Mass Index 30.23 12/13/2022 8:18 AM CDT Plan of Treatment Health Maintenance Due Date Last Done Comments CT Colonography 1963 Colonoscopy 1963 FIT 1963 HIV Screening 1965 Hepatitis C Screening 1965 Mammogram 1965 Tobacco Cessation counseling 1963 Hepatitis A Vaccines (1 of 2 - Risk 2-dose series) 12/07/1982 Pneumococcal vaccine (50+ years) (2 of 2 - PCV) 04/15/2003 04/15/2002 Zoster Vaccines (1 of 2) 12/07/2013 Cervical/Vaginal Cancer Screening 02/11/2021 02/11/2018 DTaP,Tdap,and Td Vaccines (2 - Td or Tdap) 02/16/2021 02/16/2011, 03/18/2002 Cologuard 09/19/2023 09/18/2020 Colorectal Cancer Screening 09/19/2023 Thyroid Stimulating Hormone (TSH) test for thyroid function 11/15/2023 11/14/2022, 07/11/2021, 05/27/2020, Additional history exists Hepatitis B Vaccines (1 of 3 - Risk 3-dose series) 2023 COVID-19 Vaccine ( season) 2023 03/16/2021, 07/30/2020, 07/09/2020 Influenza Vaccine (#1) 2024 , 02/22/2020, 02/17/2019, Additional history exists Creatinine Level (Kidney Function Test) 03/18/2024 03/18/2023, 12/06/2022, 11/23/2022, Additional history exists Office Visit for Blood Pressure Check / Re-check 03/18/2024 03/18/2023 Potassium Level 03/18/2024 03/18/2023, 11/14, 11/23/2022, Additional history exists Sodium Level 03/18/2024 03/18/2023, 11/14, 11/23/2022, Additional history exists Depression Screening (Annual PHQ-2) 04/15/2024 Fasting Glucose for Diabetes Screening 03/18/2026 03/18/2023, 12/06/2022, 11/23/2022, Additional history exists Lipid (Cholesterol) Screening 11/15/2027 11/14/2022, 07/11/2021, 05/27/2020, Additional history exists IPV Vaccines Aged Out No longer eligi ble based on patient's age to complete this topic Procedures Procedure Name Priority Date/Time Associated Diagnosis Comments BASIC METABOLIC PANEL, S/P Routine 03/18/2023 8:16 AM [employer] Cardiomyopathy Dilated (HCC) LIPID PANEL, S Routine 11/14/2022 9:09 AM CDT Failure Heart (HCC) THYROID FUNCTION CASCADE, S Routine 11/14/2022 9:09 AM CDT Failure Heart (HCC) from Last 3 Months or Most Recently Relevant to Health Maintenance Results * Basic Metabolic Panel (03/18/2023 8:16 AM [employer]) Potassium, S 4.3 3.6 - 5.2 mmol/L 03/18/2023 9:19 AM [employer] DTL Sodium, S 141 135 - 145 mmol/L 03/18/2023 9:19 AM [employer] DTL Chloride, S 104 98 - 107 mmol/L 03/18/2023 9:19 AM [employer] DTL Bicarbonate, S 27 22 - 29 mmol/L 03/18/2023 9:19 AM [employer] DTL Anion Gap 10 7 - 15 03/18/2023 9:19 AM [employer] DTL BUN (Blood Urea Nitrogen), S 14 6 - 21 mg/dL 03/18/2023 9:19 AM [employer] DTL Creatinine 0.88 0.59 - 1.04 mg/dL 03/18/2023 9:19 AM [employer] DTL Estimated GFR (eGFR) 76 >=60 mL/min/BSA 03/18/2023 9:19 AM [employer] DTL Comment: Estimated GFR calculated using the 2020 CKD_EPI creatinine equation. Calcium, Total, S 9.7 8.6 - 10.0 mg/dL 03/18/2023 9:19 AM [employer] DTL Glucose, S 99 70 - 140 mg/dL 03/18/2023 9:19 AM [employer] DTL Blood (Blood, Venous) 03/18/2023 8:16 AM [employer] 03/18/2023 8:57 AM [employer] Jesus Hernández M.D. LAB BLOOD ADD-ON Final Result [facility] [address] [place] [address], [facility] [place] [address] [place] [address] * (ABNORMAL) Lipid Panel (11/14/2022 9:09 AM CDT) Triglycerides 171(H) mg/dL 11/14/2022 11:06 AM CDT DTL Comment: ----REFERENCE VALUE---- Normal: <150 mg/dL Borderline High: 150-199 mg/dL High: 200-499 mg/dL Very High: > or =500 mg/dL Cholesterol, Total 128 mg/dL 2022 11:06 AM CDT DTL Comment: ----REFERENCE VALUE---- Desirable: < 200 mg/dL Borderline High: 200 - 239 mg/dL High: > or = 240 mg/dL Cholesterol, LDL, Calculated 65 mg/dL 11/14/2022 11:06 AM CDT DTL Comment: ----REFERENCE VALUE---- Desirable: <100 mg/dL Above Desirable: 100-129 mg/dL Borderline High: 130-159 mg/dL High: 160-189 mg/dL Very High: >=190 mg/dL ----ADDITIONAL INFORMATION---- LDL cholesterol calculated using the Benites/NIH equation. Cholesterol, HDL, S 34(L) >=50 mg/dL 11/14/2022 11:06 AM CDT DTL Cholesterol, Non-HDL, Calculated 94 mg/dL 11/14/2022 11:06 AM CDT DTL Comment: ----REFERENCE VALUE---- Desirable: <130 mg/dL Above Desirable: 130-159 mg/dL Borderline High: 160-189 mg/dL High: 190-219 mg/dL Very High: > or =220 mg/dL Fasting (8 HR or more) Yes 11/14/2022 9:45 AM CDT DTL Blood (Blood, Venous) 11/14/2022 9:09 AM CDT 11/14/2022 9:45 AM CDT Jesus Hernández M.D. LAB BLOOD ADD-ON Final Result [facility] [address] [place] [address], [facility] [address] [place] [address] * Thyroid Function [place] (11/14/2022 9:09 AM CDT) TSH, Sensitive 1.2 0.3 - 4.2 mIU/L 11/14/2022 11:06 AM CDT DTL Blood (Blood, Venous) 11/14/2022 9:09 AM CDT 11/14/2022 9:45 AM CDT Jesus Hernández M.D. LAB BLOOD ADD-ON Final Result [facility] [address] [place] [address], [place] DTL [facility] [address] [place] [address] from Last 3 Months or Most Recently Relevant to Health Maintenance Insurance [facility] Care Teams Lead Pharmacy Technician Relationship Specialty Start Date End Date Elsewhere, Pcp PCP - General Internal Medicine 11/12/22
--- OUTSIDE RECORDS SUMMARY | 2024-07-12 22:30 | XMS_ITS | Continuity of Care Document ---
Author Organization [facility] Address [address] [address] [place] [address] Phone Care Team Providers Care [employer] Name Role Phone No Information Unavailable Unavailable Advance Directives Directive Yes / No Effective Date File Name No Information Encounters Encounter Description Practice Location Reason(s) For Visit Diagnoses Date Provider Providers Copied on Encounter [facility], [address] [address], [place], [place], [id number], [place] tel:[phone] No Information Jun- No Information Referring Provider: Michaela Claudio MD [address], [address] , [place], [address]. tel:[phone] Family History Family Member Type Diagnosis Age At Onset No Information Payers Payer name Insurance type Covered alliance party ID Authoriza tion(s) No Information Social History Type Description Quantity Date Captured Comments Sex Female Smoking Status No Information Chief Complaint And Reason For Visit No Information Reason For Referral Reason For Referral No Information History Of Present Illness Encounter Date Complaint History Of Prese nt Illness No Information Functional Status Date Functional Assessmen t No Information Instructions Date Instruction Additional Infor mation No Information Assessments Type Assessment Date No Information Patient Care Teams Name Effective Dates (start - stop) Status Members No Information
--- NOTE | 2024-07-12 22:40 | ED.GENADULT ---
HPI - General Adult General Time Seen by Provider: 22:40 Date Seen: 07/12/24 Chief complaint: Chest Pain Stated complaint: Chest pain, shortness of breath Time Seen by Provider: 07/12/24 22:40 Source: patient, RN notes reviewed and old records reviewed Mode of arrival: ambulatory Limitations: no limitations History of Present Illness HPI narrative: This 58-year-old female is coming in with chest pain that has been episodic today. Her 1st episode was around 11:00 a.m., came without reason, lasted a few hours. She went to get up to go to bed around 8:00 p.m., started having chest heaviness again and felt short of breath. She checked her pulse oximeter, it showed pulse of 113 in her oxygen was 90-91%, she usually is 99% per her report. Her notes her heart rate has been all over. She had RSV back in May, recently was given a Z-Erik from her primary care provider for respiratory infection. She has known left bundle branch block, coronary artery disease, nonischemic cardiomyopathy. She states she is not taking aspirin, is not on any aspirin. She has nicotine dependence but do not see a COPD diagnosis. Review of [facility] shows diagnoses of hypertension, nonischemic cardiomyopathy, history of chest pain. Hypothyroidism, celiac disease. Obstructive sleep apnea. This patient is scheduled for a biventricular ICD implant at [facility] on 07/20/2024. She is scheduled to have an echo on 07/17/2024. 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 She had a recent heart monitor showing 3700 episodes of complete AV heart block. She had a cardiac CTA showing no significant obstructive coronary artery disease, there is mild to moderate but nothing severe, checked in February 2022. She had a normal chest x-ray on 07/09/2024. She was given a Z-Erik to treat her symptoms on this visit. Related Data Home Medications ?Medication ?Instructions ?Recorded ?Confirmed amlodipine 5 mg tablet 5 mg PO 03/02/24 05/19/24 levothyroxine 200 mcg tablet 200 mcg PO 03/02/24 05/19/24 losartan 25 mg tablet 25 mg PO 03/02/24 05/19/24 metoprolol succinate 25 mg 25 mg PO 03/02/24 05/19/24 tablet,extended release 24 hr nitroglycerin 0.4 mg sublingual 0.4 mg buccal 03/02/24 05/19/24 tablet rosuvastatin 20 mg tablet 20 mg PO 03/02/24 05/19/24 isosorbide mononitrate 30 mg 60 mg PO 05/19/24 05/19/24 tablet,extended release 24 hr Previous Rx's ?Medication ?Instructions ?Recorded fluconazole 150 mg tablet 150 mg PO Q3D 2 doses #2 tabs 03/24/24 albuterol sulfate 90 mcg/actuation 2 puff inhalation Q4-6H PRN 05/19/24 aerosol inhaler shortness of breath or wheezing #8.5 grams Allergies Allergy/AdvReac Type Severity Reaction Status Date / Time hydrochlorothiazide Allergy Unknown Rash Verified 07/12/24 22:57 lisinopril Allergy Unknown Cough Verified 07/12/24 22:57 prednisone Allergy Unknown felt Verified 07/12/24 22:57 visual disturbances and generalized dysphoria sacubitril (From Entresto) Allergy Unknown pulse went Verified 07/12/24 22:57 very low and passed out sulfamethoxazole (From Allergy Unknown Rash Verified 07/12/24 22:57 Bactrim) trimethoprim (From Bactrim) Allergy Unknown Rash Verified 07/12/24 22:57 valsartan (From Entresto) Allergy Unknown pulse went Verified 07/12/24 22:57 very low and passed out cortisone Allergy Verified 07/12/24 22:57 Review of Systems Status of ROS: Reports: 6 or more systems reviewed and unremarkable except as noted in History and below PFSH PFS Medical History Nonischemic cardiomyopathy ?I42.8 - Other cardiomyopathies (ICD-10) Hypertension ?I10 - Essential (primary) hypertension (ICD-10) Hypothyroid ?E03.9 - Hypothyroidism, unspecified (ICD-10) CAD (coronary artery disease) ?I25.10 - Atherosclerotic heart disease of [place] coronary artery without angina pectoris (ICD-10) Arrhythmia ?I49.9 - Cardiac arrhythmia, unspecified (ICD-10) Surgical History History of hysterectomy ?Z90.710 - Acquired absence of both cervix and uterus (ICD-10) History of endometrial ablation ?Z98.890 - Other specified postprocedural states (ICD-10) History of dilation and curettage ?Z98.890 - Other specified postprocedural states (ICD-10) History of appendectomy ?Z90.49 - Acquired absence of other specified parts of digestive tract (ICD-10) Family History Mother Myocardial infarction Diabetes Father Heart disease, Onset Age: 50 Renal insufficiency Brother Heart disease Sister High blood pressure Maternal Grandfather Myocardial infarction Uncle Myocardial infarction Social History Narrative: . Retired. 1 child. Smoking 1 pack of cigarettes daily. No alcohol. No illicit drug use. No formal exercise. Smoking Status: Current every day smoker What tobacco products do you use: cigarettes Do you use any of these nicotine containing products: None How often do you have a drink containing alcohol: never AUDIT-C Alcohol total score: 0 Non-prescribed substance use: denies use service: No Exam Const: Vital Signs, click to edit/add: Vital Signs - 24 hr 07/12/24 22:47 07/12/24 22:55 07/12/24 23:02 Temperature 98.5 F Pulse Rate 71 Pulse Rate [Right Pulse Oximeter] 72 Respiratory Rate 18 19 Blood Pressure 128/93 H Blood Pressure [Le ft Upper Arm] 182/79 H Pulse Oximetry 98 98 94 Oxygen Delivery Me thod Room Air 07/12/24 23:42 Temperature 98.5 F Pulse Rate Pulse Rate [Right Pulse Oximeter] 74 Respiratory Rate 19 Blood Pressure Blood Pressure [Le ft Upper Arm] 154/74 H Pulse Oximetry 94 Oxygen Delivery Me thod Room Air Course Course ED Course: Patient has known left bundle branch block, will need to look at her records, possibly talk to Cardiology. Will get an EKG, appropriate labs. She states she is not on any an aspirin, do want to look at her records is I feel that there may be is more here with her cardiac history that a need to know. Right now she is hemodynamically stable, will monitor her, portable chest x-ray, consider cardiac ischemic etiology, congestive heart failure, pneumonia, even thromboembolic disease. Reevaluation(s) Time of Reevaluation #1: 23:29 Reevaluation #1: Have reviewed with patient plan to transfer to [facility] for pacemaker in the morning. She does not want to go by ambulance, she started crying, states her mom in ambulance and she is afraid to ride in 1. I have reviewed with her that I will not agree to car transfer, believe this is unsafe and with EMS transfer, she will be monitored, interventions can be undertaken if she would go into complete heart block and become significantly symptomatic. Likewise, we need to monitor her troponin. She has not had follow-up troponins. I have tried to reassure her. I have reviewed with her that they do not have a bed ready, we will monitor and follow troponins appropriately until they have a bed. She plans at this time to leave with her once her magnesium is done and drive up there. I do not feel this is safe, do not agree with this plan and have tried to convey this to her. If she does do this, she will need to sign AMA. Consultations Consultation #1: Have spoken with Dr. Zamarripa in Cardiology from [facility] at [facility]. She wants this patient up there prior or D for pacemaker in the morning. Will place pacer pads. She is aware that we are giving magnesium. This patient has had variable episodes of heart block. She thinks that is likely what we are seen on the EKG. She would trend the troponins. Patient had no significant obstructive coronary artery disease on a CTA from February of 2022 but there was some calcification, just mild to moderate. Patient is a smoker. She would have me hold off on aspirin until we have definitively proven that there is changing troponins. She does think that the discomfort in the shortness of breath could be from the rhythm. I will update patient. Time: 23:09 Consultation #2: Did speak with the ED physician at [facility] to let them know that this patient is leaving AMA here, will show up in her emergency room. We reviewed the pertinent points her care, needs ongoing cardiac monitoring, pacer pads as well as troponin trending. Patient is hemodynamically stable when choosing to leave here against medical advice. Time: 23:54 Vital Signs Vital signs: Initial Vital Signs Pulse Oximetry 98 07/12/24 22:47 Vital Signs Pulse Oximetry 98 07/12/24 22:47 Temperature 98.5 F 07/12/24 23:42 Pulse Rate 74 07/12/24 23:42 Respiratory Rate 19 07/12/24 23:42 Blood Pressure 154/74 H 07/12/24 23:42 Pulse Oximetry 94 07/12/24 23:42 Oxygen Delivery Method Room Air 07/12/24 23:42 Medications Administered Medications: Generic Name Dose Route Start Last Admin Trade Name Jeannine PRN Reason Stop Dose Admin Magnesium Sulfate 2 gm in 50 mls @ 25 mls/hr 07/12/24 22:48 07/12/24 23:08 Magnesium Iv IVPB 07/13/24 00:47 25 mls/hr ONCE ONE Administration Medical Decision Making Lab Data Lab results reviewed: Yes I reviewed the patient's lab results Labs: Lab Results 07/12/24 07/12/24 Range/Units 22:40 22:41 WBC 8.80 (4.50-11.00) K/uL RBC 4.12 (4.00-5.20) m/uL Hgb 13.1 (12.0-16.0) gm/dL Hct 41.1 (33.0-51.0) % MCV 100 (80-100) fL MCH 32 (26-34) pg MCHC 32 (32-36) gm/dL RDW Coeff of Annette 14.1 (11.5-15.5) % Plt Count 353 (140-440) K/uL Neut % (Auto) 64.0 (42.0-72.0) % Lymph % (Auto) 20.0 (20-44) % [place] % (Auto) 10.2 (0.0-11.0) % Eos % (Auto) 4.3 (0.0-7.0) % Baso % (Auto) 0.5 (0.0-3.0) % Neut # (Auto) 5.63 (1.7-7.0) K/uL Lymph # (Auto) 1.76 (0.90-2.90) K/uL [place] # (Auto) 0.90 (0.00-0.90) K/UL Eos # (Auto) 0.38 (0.00-0.50) K/uL Baso # (Auto) 0.04 (0.00-0.30) K/uL Abs Immat Gran (auto) 0.09 (0.00-0.30) K/uL Imm/Tot Granulo (auto) 1.0 % D-Dimer Quant (PE/DVT) 1.01 H (0.00-0.50) ug/ml VBG pH 7.381 (7.32-7.43) VBG pCO2 41 (40-50) mmHG VBG pO2 46.1 (25-47) mmHG VBG HCO3 25 (21-28) mmol/L Sodium 143 (135-149) mmol/L Potassium 4.5 (3.6-5.1) mmol/L Chloride 108 (96-114) mmol/L Carbon Dioxide 22 (20-32) mmol/L Anion Gap 13 (7-15) mEq/L BUN 21 (7-30) mg/dL Creatinine 0.9 (0.5-1.5) mg/dL Estimated Creat Clear 76.71 Estimated GFR 73 ml/min Glucose 117 H (60-115) mg/dL Lactate 2.1 H (0.5-1.9) mmol/L Calcium 9.4 (8.4-10.6) mg/dL Magnesium 2.3 (1.5-2.6) mg/dL Total Bilirubin 0.4 (0.1-1.5) mg/dL AST 34 (12-35) U/L ALT 31 (4-35) U/L Alkaline Phosphatase 103 (40-150) U/L Troponin I < 0.01 (0.01-0.04) ng/mL C-Reactive Protein 0.7 (0.5-1.0) mg/dL NT-Pro-B Natriuret Pep 511 pg/mL Total Protein 8.5 H (6.0-8.3) g/dL Albumin 5.0 (3.3-5.0) g/dL POC Troponin I 0.01 (0.01-0.04) ng/ml Imaging Data Chest x-ray: Attestation: I have reviewed the pertinent imaging results. Radiologist's impression: Patient: KUSHAL QUINTERO Facility:?[facility] Patient ID:?[id number] Site Patient ID:?[id number]. Site :?[id number] Study:?XRay-Chest PORTABLE-07/12/2024 11:08:19 PM Ordering Physician:Risa Trujillo Final Report: INDICATION: Cough, shortness of breath TECHNIQUE: Chest radiograph 1 view COMPARISON: 06/24/2021 FINDINGS: The sensitivity and specificity of the exam are moderately limited by the patient`s body habitus. Mediastinum: The mediastinum is normal in appearance. The cardiac silhouette is mildly enlarged but may be accentuated by the portable technique. Lung: Both lungs are unremarkable in appearance. No sign of pleural effusion seen. No pneumothorax is identified. Bone and Soft tissue: Unremarkable for age. IMPRESSION: 1. The cardiac silhouette is mildly enlarged but may be accentuated by the portable technique. Dictated by Craig Lim MD @ 07/12/2024 11:15:13 PM Dictated by: Craig Lim MD @ 07/12/2024 23:15:20 (Electronic Signature) ECG Data Attestation: I personally reviewed and interpreted this ECG as follows: (PVCs, seem to have groupings of couplets of them and then there is an aberrant PVC, morphology of these is different, I really do not know what this rhythm is but she does have a blood pressure.) Prior ECG tracings: available for review Discharge Plan Discharge Clinical Impression: Left bundle branch block, Intermittent complete heart block Chest pain Qualifiers: Chest pain type: unspecified Qualified Code(s): R07.9 - Chest pain, unspecified Patient Disposition: Xfer [facility] Discharge Location: [facility] Condition: Unchanged Prescriptions: No Action albuterol sulfate 90 mcg/actuation HFA aerosol inhaler 2 puff inhalation Q4-6H PRN (Reason: shortness of breath or wheezing) Qty: 8.5 1RF fluconazole 150 mg tablet 150 mg PO Q3D Qty: 2 0RF amlodipine 5 mg tablet 5 mg PO Patient Comments: TAKE ONE TABLET BY MOUTH ONE TIME DAILY levothyroxine 200 mcg tablet 200 mcg PO Patient Comments: TAKE ONE TABLET BY MOUTH EVERY DAY IN THE MORNING. losartan 25 mg tablet 25 mg PO Patient Comments: TAKE ONE TABLET BY MOUTH ONE TIME DAILY metoprolol succinate 25 mg tablet extended release 24 hr 25 mg PO Patient Comments: TAKE ONE TABLET BY MOUTH ONE TIME DAILY nitroglycerin 0.4 mg tablet, sublingual 0.4 mg buccal Patient Comments: Place 1 tablet under the tongue every 5 minutes if needed for chest pain. max 3 tablets/15 minutes. rosuvastatin 20 mg tablet 20 mg PO Patient Comments: TAKE ONE TABLET BY MOUTH ONE TIME DAILY AT BEDTIME isosorbide mononitrate 30 mg tablet extended release 24 hr 60 mg PO Patient Comments: TAKE ONE TABLET BY MOUTH ONE TIME DAILY Stand Alone Forms: [facility] Info Instructions
[2024-07-12 22:47] VITALS: O2SAT 98
--- NOTE | 2024-07-12 22:47 | CRLHL7_ITS ---
For Patients: As a result of the Cures Act, medical imaging exams and procedure reports are released immediately into your electronic medical record. You may view this report before your referring provider. If you have questions, please contact your health care provider. INDICATION: Cough, shortness of breath TECHNIQUE: Chest radiograph 1 view COMPARISON: 06/24/2021 FINDINGS: The sensitivity and specificity of the exam are moderately limited by the patient`s body habitus. Mediastinum: The mediastinum is normal in appearance. The cardiac silhouette is mildly enlarged but may be accentuated by the portable technique. Lung: Both lungs are unremarkable in appearance. No sign of pleural effusion seen. No pneumothorax is identified. Bone and Soft tissue: Unremarkable for age. IMPRESSION: 1. The cardiac silhouette is mildly enlarged but may be accentuated by the portable technique. Dictated by Craig Lim MD @ 07/12/2024 11:15:13 PM Dictated by: Craig Lim MD @ 07/12/2024 23:15:20 (Electronically Signed)
[2024-07-12 22:55] VITALS: BP 182/79; PULSE 72; RESP 18; TEMP 36.9; O2SAT 98; BMI 27.1
[2024-07-12 22:58] LABS: Troponin, Point-of-Care* 0.01 ng/ml (0.01-0.04)
[2024-07-12 22:58] LABS: HCO3 VBG 25 mmol/L (21-28); Lactate* 2.1 mmol/L (0.5-1.9); PCO2 VBG 41 mmHG (40-50); PO2 VBG 46.1 mmHG (25-47); pH VBG 7.381 (7.32-7.43)
[2024-07-12 23:00] LABS: Basophils Absolute Auto 0.04 K/uL (0.00-0.30); Basophils Percent Auto 0.5 % (0.0-3.0); Eosinophils Absolute Auto 0.38 K/uL (0.00-0.50); Eosinophils Percent Auto 4.3 % (0.0-7.0); Hematocrit 41.1 % (33.0-51.0); Hemoglobin* 13.1 gm/dL (12.0-16.0); Immature Granulocytes Abs Auto 0.09 K/uL (0.00-0.30); Lymphocytes Absolute Auto 1.76 K/uL (0.90-2.90); Mean Corpuscular HGB Conc 32 gm/dL (32-36); Mean Corpuscular Hemoglobin 32 pg (26-34); Mean Corpuscular Volume 100 fL (80-100); Monocytes Percent Auto 10.2 % (0.0-11.0); Neutrophils Absolute Auto 5.63 K/uL (1.7-7.0); Platelet Count* 353 K/uL (140-440); RDW Coefficient of Variation % 14.1 % (11.5-15.5); Red Blood Count 4.12 m/uL (4.00-5.20); Slide Review Reflex No
[2024-07-12 23:02] VITALS: BP 128/93; PULSE 71; RESP 19; O2SAT 94
[2024-07-12] MEDS: MAGNESIUM IV 2 GM/50 ML PIGGYBACK IVPB (23:08)
[2024-07-12 23:13] LABS: Chloride* 108 mmol/L (96-114)
[2024-07-12 23:14] LABS: Potassium* 4.5 mmol/L (3.6-5.1); Sodium* 143 mmol/L (135-149)
[2024-07-12 23:16] LABS: Alanine Aminotransferase* 31 U/L (4-35); Anion Gap 13 mEq/L (7-15); Aspartate Amino Transferase* 34 U/L (12-35); Blood Urea Nitrogen* 21 mg/dL (7-30); Carbon Dioxide* 22 mmol/L (20-32); Creatinine* 0.9 mg/dL (0.5-1.5); Est. Creatinine Clearance* 76.71; Estimated Glomerular Filt Rate 73 ml/min
--- OUTSIDE RECORDS SUMMARY | 2024-07-12 23:16 | XMS_ITS | Clinical Summary ---
Author Organization [facility] Address [address] [place] [address] Care Team Providers Care General Partner Name Role Phone Elsewhere, Pcp Primary Care Provider Unavailabl e Source Comments Patient records contain information from all sites at [facility]. For routine questions regarding patient records, call [phone] during business hours, M-F 8:00 AM - 5:00 PM Central Time. Record requests for emergency care only can be directed to [phone] at any time.[facility] Allergies Active Allergy Reactions Criticality Noted Date Comments Sacubitril-Valsartan Other (see comments) High 12/13/2022 Pulse dropped to 29, fainted, dizziness Hydrochlorothiazide Rash Medium 02/14/2007 Lisinopril Cough High 09/29/2007 Cough Prednisone Other (see comments) High 11/18/2007 [place] visual disturbance and generalalized dysphoria Sulfamethoxazole-Trimethop rim [...] Premature Ventricular 03/18/2023 Atherosclerotic Heart Diseas e [place] Coronary Artery With Other Forms Angina Pectoris [...] your living situation today? I have a [facility] place to live 11/20/2022 Comments Unknown Sex and Gender Information Value Date Recorded Sex Assigned at Choose not to disclose 12/2022 8:44 PM CDT Legal Sex Female 6:19 AM DRILL PRESS OPERATOR Gender Identity Other 11/21/2022 8:44 PM CDT Sexual Orientation Choose not to disclose 2022 8:44 PM CDT Last Filed Vital Signs Vital Sign Reading Time Taken Comments Blood Pressure 111/70 03/18/2023 10:22 AM DRILL PRESS OPERATOR Pulse 74 03/18/2023 10:22 AM DRILL PRESS OPERATOR Temperature 36.6 C (97.9 F) 12/06/2022 6:26 [...] METABOLIC PANEL, S/P Routine 03/18/2023 8:16 AM DRILL PRESS OPERATOR Cardiomyopathy Dilated (HCC) LIPID PANEL, S Routine 11/14/2022 9:09 AM CDT Failure Heart (HCC) THYROID FUNCTION CASCADE, S Routine 11/14/2022 9:09 AM CDT Failure Heart (HCC) from Last 3 Months or Most Recently Relevant to Health Maintenance Results * Basic Metabolic Panel (03/18/2023 8:16 AM DRILL PRESS OPERATOR) Potassium, S 4.3 3.6 - 5.2 mmol/L 03/18/2023 9:19 AM DRILL PRESS OPERATOR DTL Sodium, S 141 135 - 145 mmol/L 03/18/2023 9:19 AM DRILL PRESS OPERATOR DTL Chloride, S 104 98 - 107 mmol/L 03/18/2023 9:19 AM DRILL PRESS OPERATOR DTL Bicarbonate, S 27 22 - 29 mmol/L 03/18/2023 9:19 AM DRILL PRESS OPERATOR DTL Anion Gap 10 7 - 15 03/18/2023 9:19 AM DRILL PRESS OPERATOR DTL BUN (Blood Urea Nitrogen), S 14 6 - 21 mg/dL 03/18/2023 9:19 AM DRILL PRESS OPERATOR DTL Creatinine 0.88 0.59 - 1.04 mg/dL 03/18/2023 9:19 AM DRILL PRESS OPERATOR DTL Estimated GFR (eGFR) 76 >=60 mL/min/BSA 03/18/2023 9:19 AM DRILL PRESS OPERATOR DTL Comment: Estimated GFR calculated using the 2020 CKD_EPI creatinine equation. Calcium, Total, S 9.7 8.6 - 10.0 mg/dL 03/18/2023 9:19 AM DRILL PRESS OPERATOR DTL Glucose, S 99 70 - 140 mg/dL 03/18/2023 9:19 AM DRILL PRESS OPERATOR DTL Blood (Blood, Venous) 03/18/2023 8:16 AM DRILL PRESS OPERATOR 03/18/2023 8:57 AM DRILL PRESS OPERATOR Jesus Hernández M.D. LAB BLOOD ADD-ON Final Result [facility] [address] [place] [address], [facility] [address] [place] [address] * (ABNORMAL) Lipid Panel (11/14/2022 9:09 AM [...] Hernández M.D. LAB BLOOD ADD-ON Final Result [facility] [address] [place] [address], [facility] [address] [place] [address] * Thyroid Function [place] (11/14/2022 9:09 AM CDT) TSH, Sensitive 1.2 0.3 - 4.2 mIU/L 11/14/2022 11:06 AM CDT DTL Blood (Blood, Venous) 11/14/2022 9:09 AM CDT 11/14/2022 9:45 AM CDT Jesus Hernández M.D. LAB BLOOD ADD-ON Final Result [facility] [address] [place] [address], [place] DTL [facility] [address] [place] [address] from Last 3 Months or Most Recently Relevant to Health Maintenance Insurance [facility] Care Teams General Partner Relationship Specialty Start Date End Date Elsewhere, Pcp PCP - General Internal Medicine 11/12/22
--- OUTSIDE RECORDS SUMMARY | 2024-07-12 23:16 | XMS_ITS | Continuity of Care Document ---
Author Organization [facility] Address [address] [address] [place] [address] Phone Care Team Providers Care Compliance Specialist Name Role Phone No Information Unavailable Unavailable Advance Directives Directive Yes / No Effective Date File Name No Information Encounters Encounter Description Practice Location Reason(s) For Visit Diagnoses Date Provider Providers Copied on Encounter [facility], [address] [address], [place], [place], [id number], [place] tel:[phone] No Information Jun- No Information Referring Provider: Michaela Claudio MD [address], [address] , [place], [address]. tel:[phone] Family History Family Member Type Diagnosis Age At Onset No Information Payers Payer name Insurance type Covered republican ID Authoriza tion(s) No Information Social History [...]
--- OUTSIDE RECORDS SUMMARY | 2024-07-12 23:16 | XMS_ITS | Clinical Summary ---
Author Organization [employer] [facility] Address [address] [place] [id number] Care Team Providers Care Information Systems Planner Name Role Phone Michaela Claudio MD Primary Care Provide r Allergies Active Allergy Reactions Criticality Noted Date Comments Sulfamethoxazole-Trimethop rim Rash 02/14/2007 Sacubitril-Valsartan Other - Describe In Comment Field 06/17/2023 Pulse went very low and passed out Hydrochlorothiazide Rash 02/14/2007 Lisinopril Intolerance-Can' t Take 09/29/2007 Cough Prednisone Other - Describe In Comment Field 11/18/2007 [place] visual disturbance and generalalized dysphoria Medications cholecalciferol (VITAMIN D3) 1,000 unit capsule Take 3 capsules by mouth once daily. 0 020 Active Ascorbic Ufzg-Ouefsxnjk-So n 1,000 mg pwep Take by mouth. 0 020 Active turmeric root extract 500 mg cap Take 100 mg by mouth. 0 021 Active nitroglycerin (NITROSTAT) 0.4 mg sublingual tabletIndications :Chest pain in adult Place 1 Tablet (0.4 mg) under the tongue every 5 minutes if needed for Chest Pain. 25 Tablet 024 Active Nnadmognjeu-KU-Dj -S.thermophl 1 billion cell- 250 mg tab [...] hyperlipidemia type,Nonischemic cardiomyopathy (HC),Coronary artery disease involving northern cheyenne coronary artery of northern cheyenne heart without angina pectoris Take 2,000 mg by mouth two times daily. 360 Tablet 3 024 Active LORazepam (ATIVAN) 0.5 mg tabIndications:An xiety TAKE ONE TABLET BY MOUTH DAILY NEEDED 30 Tablet 025 Active amLODIPine (NORVASC) 10 mg tabletIndications :Essential hypertension TAKE ONE TABLET BY MOUTH ONE TIME DAILY 90 Tablet 3 025 Active rosuvastatin (CRESTOR) 20 mg tabletIndications :CAD in northern cheyenne artery TAKE ONE TABLET BY MOUTH ONE [...] extended release tablet 24 HourIndications:C AD in northern cheyenne artery Take 1 Tablet (30 mg) by [...] extended release tablet 24 HourIndications:C AD in northern cheyenne artery TAKE ONE TABLET BY MOUTH ONE TIME DAILY 90 Tablet 024 2024 Discontinued(R eorder (E-cancel not sent)) rosuvastatin (CRESTOR) 20 mg tabletIndications :CAD in northern cheyenne artery TAKE ONE TABLET BY MOUTH ONE [...] mg Sustained-Release tabletIndications :Coronary artery disease involving northern cheyenne coronary artery of northern cheyenne heart without angina pectoris,Chest pain, unspecified type Take 1 Tablet (100 mg) by mouth once daily. You are due for your annual Cardiology appointment in July 2024 with lab work and imaging prior. Please call I two months prior to schedule at [phone]. 025 2024 Discontinued(* Med complete/Regim en complete/Level [...] Description 07/09/2024 12:00 PM CDT Ancillary Procedure [facility] [address] [place] [address] Arrived 07/09/2024 10:45 AM CDT Office Visit [facility] [address] [place] [address] Michaela Claudio MD Follow Up (Patient is scheduled for a BIV ICD implant on 07/20/[address] Henriquez./Is concerned as still having SOB and coughing up clear phlegm, would like a chest x-ray, to rule out infection/echo on 07/17/24/) 07/09/2024 Travel 07/07/2024 Telephone [facility] [address] [facility] [address] [place] [address] Jacque Metzger, RN questions 07/01/[address] [facility] [address] [facility] [address] [place] [phone] Micheal Henriquez MD Questions (Questions regarding prior auth.) 06/25/2024 12:46 PM CDT - 06/25/2024 11:59 PM CDT Hospital Encounter [facility] [address] [place] [address] Roger Fairchild MD AV block, 3rd degree (HC); AV block, Mobitz 2 06/25/2024 12:20 PM [address]T Orders Only [facility] [address] [phone] Lab 06/25/2024 11:00 AM CDT Office Visit [facility] [address] [phone] Roger Fairchild MD CV Electrophysiology Est (Zio report: notification criteria for CHB met. SX. referral per Dr Moon. /BMP 06-24-2024 //PCP: Michaela Claudio MD) 06/24/2024 11:00 AM CDT Orders Only [facility] [address] [place] [address] Lab, [facility] Lab 06/24/2024 Travel 06/24/2024 Telephone [facility] [address] [place] [address] Michaela Claudio MD Appointment (Cancellation); Appointment Request 06/19/[address] [facility] [address] [phone] John Rivera PA concerns (-->VICTOR MANUEL EP consult) 06/19/2024 Telephone [facility] [address] [place] [address] Michaela Claudio MD Follow Up 06/18/[address] [facility] [address] [place] [address] [place] [phone] John Rivera PA Refill Request (Losartan) 06/18/2024 Refill [facility] [address] [place] [address] Michaela Claudio MD Refill Request (Amlodipine, Rosuvastatin) 06/16/[address] [facility] [address] [phone] John Rivera PA Concerns 06/11/2024 11:00 AM MOVIE THEATER USHER Office Visit [facility] [address] [phone] John Rivera PA CV General Cardiology Est (SAME DAY ADD ON . APPROVED BY RN. PT WANTED TO BE SEEN TODAY DUE TO HR 36-44//PCP: Michaela Claudio MD/) 06/11/2024 Nurse Triage [facility] [address] [place] [address] Michaela Claudio MD Palpitations 05/19/2024 Refill [facility] [address] [place] [address] Michaela Claudio MD Refill Request (Lorazepam) 04/23/2024 Refill [facility] [address] [place] [address] Michaela Claudio MD Refill Request (Lorazepam) 04/19/2024 Refill [facility] [address] [place] [address] Michaela Claudio MD Refill Request (Levothyroxine) from Last 3 Months Immunizations Immunization Administration Dates Next Due COVID-19 vaccine (Green [employer] 30mcg/0.3mL) JACK CALLES 03/16/2021,03/16/2021,07/30/2020,2020,07/09/2020 Influenza RIV4 (Age [...] Heart Disease Brother stents Heart Disease Father ND - at 74 Other Father renal insuffici ency/anemia Heart attack Maternal Grandfather Heart attack Maternal Uncle Diabetes Mother Heart Disease Mother ND - at 64 Hypertension Sister Cancer-breast No [...] on file Legal Sex Female 5:23 AM MOVIE THEATER USHER Gender Identity Not on file Sexual Orientation Not on file Obstetrics History Last Filed Vital Signs Vital Sign Reading Time Taken Comments Blood Pressure 117/64 07/09/2024 11:12 AM CDT Pulse 47 07/09/2024 11:12 AM CDT Temperature 36.6 C (97.9 F) 08/05/2023 11:07 AM CDT Respiratory Rate 16 03/13/2022 8:07 AM MOVIE THEATER USHER Oxygen Saturation 97% 07/09/2024 11:12 AM CDT Inhaled Oxygen Concentration - - Weight 90.7 kg (200 lb) 08/05/2023 11:01 AM CDT Height 188 cm (6' 2) 06/25/2024 10:59 AM CDT Body Mass Index 25.68 03/20/2023 2:28 PM MOVIE THEATER USHER Plan of Treatment Upcoming Encounters Date Type Department Care Team (Late st Contact Info) Description 07/17/2024 9:00 AM CDT Ancillary Procedure [facility] [address] [place] [phone] 07/20/2024 8:00 AM CDT Appointment [facility] [address] [place] [address] Micheal Henriquez MD [address] [facility] [address] [place] [address] 07/24/2024 1:00 PM CDT Office Visit [facility] [address] [place] [phone] Carroll Herbert MD [address] [facility] [address] [place] [address] Health Maintenance Due Date Last Done Comments [...] Routine 06/24/2024 10:55 AM CDT CAD in northern cheyenne artery EXTENDED HOLTER Routine 06/23/2024 Coronary artery disease involving northern cheyenne coronary artery of northern cheyenne heart without angina pectoris Chest pain, unspecified type EKG 12 LEAD Routine 06/11/2024 11:57 AM MOVIE THEATER USHER Coronary artery disease involving northern cheyenne coronary artery of northern cheyenne heart without angina pectoris Chest pain, unspecified type CT CHEST PE STUDY STAT 03/02/2022 2:1 1 PM MOVIE THEATER USHER Atypical chest pain ANTI HCV Routine 07/11/2021 9:25 AM CDT Encounter for hepatitis C virus screening test for high risk patient HOOK TENDER THIN PREP PAP SCREEN IMAGED Routine 02/11/2018 [...] PM CDT Narrative 06/25/2024 4:34 PM CDT [facility] CMR Report Name: TANYA BURNETTE : Scan Date: Accession Number: [id number] Status: Final Electronically signed by Félix Brock [...] Hypo None Apical Lateral Mild/Mod Hypo None [place] Mild/Mod Hypo None + + + + +---- ----- -------+ RV Segments Wall Motion Hyperenhancement Interpretation + + + + +---- ----- -------+ RV Basal Anterior Normal/Hyper None RV Basal Inferior Normal/Hyper None RV Mid Normal/Hyper None RV Apical Normal/Hyper None ' + + + +---- ----- -------' FINDINGS LV SCAR SIZE (17 SEGMENT): 0 % SCAN INFO ===== GENERAL ----- --- SCANNER READING PROFESSOR: SIEMENS MODEL: Aera CONTRAST AGENT TYPE: Gadavist GD CONCENTRATION: 1.0 M SETUP REFERRING PHYSICIAN: ROGER FAIRCHILD ATTENDING PHYSICIAN: ROGER FAIRCHILD BILLING ===== Patient Account [id number] ICD10 Codes I44.2, I44.1 Report generated by [employer], a product of [employer] Procedure Note Cortez Julian MD - 06/25/2024 [facility] CMR Report Name: TANYA BURNETTE : Scan Date: Accession Number: [id number] Status: Final Electronically signed by Félix Brock [...] visualized. Conclusion: Non-ischemic, idiopathic dilated cardiomyopathy wit [id number] ml/m2 and LVEF 38%. There is no [...] Hypo None Apical Lateral Mild/Mod Hypo None [place] Mild/Mod Hypo None + + + + +---- ----- -------+ RV Segments Wall Motion Hyperenhancement Interpretation + + + + +---- ----- -------+ RV Basal Anterior Normal/Hyper None RV Basal Inferior Normal/Hyper None RV Mid Normal/Hyper None RV Apical Normal/Hyper None ' + + + +---- ----- -------' FINDINGS LV SCAR SIZE (17 SEGMENT): 0 % SCAN INFO ===== GENERAL ----- --- SCANNER READING PROFESSOR: SIEMENS MODEL: Aera CONTRAST AGENT TYPE: Gadavist GD CONCENTRATION: 1.0 M SETUP REFERRING PHYSICIAN: ROGER FAIRCHILD ATTENDING PHYSICIAN: ROGER MCCORMACKING ===== Patient Account [id number] ICD10 Codes I44.2, I44.1 Report generated by [employer], a product of [employer] us Roger Fairchild MD MR Final Resu lt * LYME SCREEN W/REFLEX (06/25/2024 12:46 PM CDT) LYME SCREEN W/REFLEX Negative Negative 06/26/2024 9:46 AM CDT [facility] Comment: No laboratory evidence of [...] 12:46 PM CDT 06/25/2024 1:10 PM CDT Rgoer Fairchild MD SEND OUTS Final Resu lt [facility] [address] [place] [address], * (ABNORMAL) BASIC METABOLIC PANEL (06/25/2024 12:46 PM CDT) Only the most recent of2 resultswithin the time period is included. SODIUM 140 136 - 145 mmol/L 06/25/2024 1:37 PM CDT [facility] POTASSIUM 5.0 3.5 - 5.1 mmol/L 06/25/2024 1:37 PM CDT [facility] CHLORIDE 105 98 - 107 mmol/L 06/25/2024 1:37 PM CDT [facility] CO2,TOTAL 25 22 - 29 mmol/L 06/25/2024 1:37 PM CDT [facility] ANION GAP 10 5 - 18 06/25/2024 1:37 PM CDT [facility] GLUCOSE 99 70 - 99 mg/dL 06/25/2024 1:37 PM CDT [facility] CALCIUM 9.2 8.8 - 10.4 mg/dL 06/25/2024 1:37 PM CDT [facility] Comment: Reference ranges for this test were updated on 02/18/2024 to reflect our healthy population more accurately. Reference range changes are not retroactively applied to results, but previous results using the same methodology can be interpreted in the context of the new reference range. BUN 18 8 - 23 mg/dL 06/25/2024 1:37 PM CDT [facility] CREATININE 0.85 0.50 - 0.90 mg/dL 06/25/2024 1:37 PM CDT [facility] BUN/CREAT RATIO 21(H) 10 - 20 1:37 PM CDT [facility] eGFR 79(L) >90 mL/min/1.7 3m2 06/25/2024 1:37 PM CDT [facility] Comment:As of 2021, eG FR [...] CDT Micheal Maradiaga MD CHEMISTRY Final Result [facility] [address] [place] [address], * EKG 12 LEAD (06/25/2024 10:56 AM CDT) Only the most recent of2 resultswithin the time period is included. Interpretation Sinus rhythm with 2:1 AV block Left bundle branch block Abnormal ECG Ventricular Rate 49 BPM Atrial Rate 49 BPM P-R Interval 176 ms QRS Duration 156 ms QT 590 ms QTc 532 ms P [place] 48 degrees R [place] 31 degrees T [place] 54 degrees 06/25/2024 10:5 6 AM CDT 06/26/2024 1:22 PM CDT Roger Fairchild MD EKG ORD Final Resu lt * TSH WITH REFLEX (06/24/2024 10:55 AM CDT) TSH W/REFLEX TO FT4 3.11 0.40 - 4.50 mIU/L [facility] Blood BLOOD SPECIMEN / Unknown 06/24/2024 10:55 AM CDT 06/24/2024 10:57 AM CDT Narrative [facility] - 06/25/2024 6:05 AM CDT FASTING:NO FASTING: NO Michaela Claudio MD CHEMISTRY Final Result [facility] [address] [place] [address], [facility] [address] [place] [address] * (ABNORMAL) LIPID PANEL W REFLEX MEASURED LDL (06/24/2024 10:55 AM CDT) Pathologist [facility] CHOLESTEROL, TOTAL 119 <200 mg/dL [facility] HDL CHOLESTEROL 33(L) > OR = 50 mg/dL [facility] TRIGLYCERIDES 232(H) <150 mg/dL [facility] Comment: If a non-fasting specimen was collected, consider repeat triglyceride testing on a fasting specimen if clinically indicated. Júnior et al. J. of Clin. Lipidol. 2015;9:129-169. LDL-CHOLESTEROL 57 mg/dL (calc) [facility] Comment: Reference range: <100 Desirable range <100 mg/dL for primary prevention; <70 mg/dL for patients with CHD or diabetic patients with > or = 2 CHD risk factors. LDL-C is now calculated using the Damaris calculation, which is a validated novel method providing better accuracy than the Friedewald equation in the estimation of LDL-C. Manas MICHAEL et al. CHAS. 2013;310(19): 7437-1880 (http://education.HealthyTweet/faq/HBR446) CHOL/HDLC RATIO 3.6 <5.0 (calc) [facility] NON HDL CHOLESTEROL 86 <130 mg/dL (calc) [facility] Comment: For patients with diabetes plus 1 major ASCVD risk factor, treating to a non-HDL-C goal of <100 mg/dL (LDL-C of <70 mg/dL) is considered a therapeutic option. Blood BLOOD SPECIMEN / Unknown 06/24/2024 10:55 AM CDT 06/24/2024 10:57 AM CDT [facility] - 06/25/2024 5:09 AM CDT FASTING:NO FASTING: NO Michaela Claudio MD CHEMISTRY Final Result [facility] [address] [place] [address], [facility] [address] [place] [phone] * (ABNORMAL) CBC AND DIFFERENTIAL (06/24/2024 10:55 AM CDT) WHITE BLOOD CELL COUNT 8.3 3.8 - 10.8 Thousand/u L [facility] RED BLOOD CELL COUNT 3.90 3.80 - 5.10 Million/uL [facility] HEMOGLOBIN 12.6 11.7 - 15.5 [...] Claudio MD HEMATOLOGY Final Result [facility] [address] [place] [address], [facility] [address] [place] [address] * (ABNORMAL) ZIO PATCH XT - weekly to monthly symptoms. (06/23/2024) [facility] ORD Edit ed Result - Final * CT CHEST PE STUDY (03/02/2022 2:11 PM MOVIE THEATER USHER) Anatomical Region Laterality Modality CHEST, THORAX, HEART Computed To mography 03/02/2022 2:22 PM MOVIE THEATER USHER Impressions 03/02/2022 2:22 PM MOVIE THEATER USHER No evidence of pulmonary thromboembolism. Left hepatic [...] 2:22PM (Electronically Signed) Narrative 03/02/2022 2:22 PM MOVIE THEATER USHER For Patients: As a result of the [...] trupti Non-React trupti 07/11/2021 5:01 PM CDT [facility] Comment:Antibodies to HCV no t detected; does not exclude the possibility of exposure to HCV. Blood BLOOD SPECIMEN / Unknown Venipuncture / Unknown 07/11/2021 9:25 AM CDT 07/11/2021 9:26 AM CDT us Michaela Claudio MD SEND OUTS Final Result [facility] [address] [place] [address], [place] * HOOK TENDER THIN PREP PAP SCREEN IMAGED (02/11/2018 1:40 PM CDT) Case Report Gynecologic Cytology Report Case: [id number] Authorizing Provider: Maria Victoria Hancock MD Collected: 02/11/2018 1340 First Screen: Navya Staton Received: 02/13/2018 1826 Specimen: HOOK TENDER ThinPrep Vial Screening, Cervical/Vaginal 02/20/2018 4:16 PM MOVIE THEATER USHER [facility] INTERPRETATION/ RESULT NEGATIVE FOR INTRAEPITHELIAL LESION OR MALIGNANCY (NIL) (none) 02/20/2018 4:16 PM MOVIE THEATER USHER [facility] IMEN ADEQUACY Satisfactory for evaluation Endocervical component present 02/20/2018 4:16 PM MOVIE THEATER USHER [facility] HPV REQUEST HPV and PAP 02/20/2018 4:16 PM MOVIE THEATER USHER [facility] Date of LMP 02/20/2018 4:16 PM MOVIE THEATER USHER [facility] Comment:PM Last Pap Date 2010 02/20/2018 4:16 PM MOVIE THEATER USHER [facility] Last Pap Result NIL 8 4:16 PM MOVIE THEATER USHER [facility] Automated Review Successful 02/20/2018 4:16 PM MOVIE THEATER USHER [facility] Comment:Specimen processed s uccessfully by automated fish hatchery specialist device, ThinPrep Imaging System, [employer] ANCILLARY TESTING HOOK TENDER HPV Ordered, Please see separate report 02/20/2018 4:16 PM MOVIE THEATER USHER [facility] Note The pap test is a [...] lesions. Cytology is screened and interpreted at [facility] Central Laboratory - [address], [place] [address] and [facility] - [address]; [place] [address] and [facility] - [address]; [place] [address] and [facility] [address]; [place] [address] 02/20/2018 4:16 PM MOVIE THEATER USHER [facility] Other (Cervical/Vagina l) 02/11/2018 1:40 PM CDT 02/13/2018 6:26 PM CDT us Maria Victoria Hancock MD PATHOLOGY/CYTOLOGY Final Result Performing Organization Address City/State/[facility] Co de Phone Number [facility] [address] [place] [address], [place] * SCAN-MAMMOGRAPHY REPORT (12/14/2011 12:00 AM CDT) Anatomical Region Laterality Modality Other Narrative Transcriptions Scanner - 12/14/2011 12:00 AM CDT us Scanner OTHER Final Result from Last 3 Months or Most Recently Relevant to Health Maintenance Insurance [id number] [facility] [place] [id number] [facility] INDIV[facility]UAL AND FAMILY PLANS [id number] [facility] [place] [phone] [facility] [employer] [employer] Advance Directives * Full Code (Latest Code Status on File) Date Activated Date Inactivated Comments 05/17/2020 11:07 AM 05/17/2020 7:58 PM Question Answer Comments Code Status Discussion: Discussed Care Teams Information Systems Planner Relationship Specialty Start Date End Date Michaela Claudio MD [address] [address] PCP - General Family Practice 07/25/17
[2024-07-12 23:17] LABS: Alkaline Phosphatase* 103 U/L (40-150); Bilirubin Total* 0.4 mg/dL (0.1-1.5); Calcium* 9.4 mg/dL (8.4-10.6); Glucose* 117 mg/dL (60-115); Magnesium* 2.3 mg/dL (1.5-2.6); Total Protein* 8.5 g/dL (6.0-8.3)
[2024-07-12 23:18] LABS: D Dimer Quantitative* 1.01 ug/ml (0.00-0.50)
[2024-07-12 23:26] LABS: C Reactive Protein* 0.7 mg/dL (0.5-1.0)
[2024-07-12 23:37] LABS: NT Pro B Type NatriureticPept* 511 pg/mL; Troponin I* < 0.01 ng/mL (0.01-0.04)
[2024-07-12 23:42] VITALS: BP 154/74; PULSE 74; RESP 19; TEMP 36.9; O2SAT 94
[2024-07-13] VITALS: BP 154/74; PULSE 74; RESP 19; TEMP 36.9
== END 2024-07-13 00:55 | disposition short-term general hospital (02) ==
PROVIDERS: Emergency Provider Family Medicine; PCP Family Medicine
DX: I44.7 Left bundle-branch block, unspecified (principal); I44.2 Atrioventricular block, complete; R05.1 Acute cough
CPT/HCPCS: 36415; 71045; 80053; 82803; 83605; 83735; 83880; 84484; 85025; 85379; 86140; 93005; 94761; 96365; 99285; J3475

== ENCOUNTER 2025-02-18 12:09 | Outpatient (CLI) | payer BC, SELFPAY ==
[2025-02-18 14:39] LABS: Strep A DNA Probe* NOT DETECTED (Not Detectd)
== END 2025-02-18 12:10 | disposition home or self-care (01) ==
LOC: KYNREF 12:10
PROVIDERS: PCP Family Medicine; Visit Provider Nurse Practitioner Family
DX: M54.2 Cervicalgia (principal)
CPT/HCPCS: 87651